=== PATIENT | female | born 1950 | race Caucasian/White ===

== ENCOUNTER 2018-03-11 10:20 | Emergency (ER) | payer MEDICARE, SELFPAY ==
[2018-03-11 10:25] VITALS: BP 141/76; PULSE 91; RESP 20; TEMP 36.6
--- NOTE | 2018-03-11 10:29 | DI.RAD.S_ITS ---
PROCEDURE: XR FOOT LT MIN 3V INDICATIONS: injury, pain TECHNIQUE: 3 views of the foot were acquired. COMPARISON: [facility], CR, XR ANKLE LT MIN 3V, 03/11/2018, 10:30. FINDINGS: Bones: No fractures or dislocations. No suspicious bony lesions. There is a bipartite medial sesamoid. Soft tissues: No tibiotalar joint effusion. Achilles tendon appears normal. IMPRESSION: No fracture or dislocation. If clinical symptoms persist or clinical suspicion for pathology is high, a repeat examination in 7-10 days, or advanced imaging such as CT or MRI is suggested for further evaluation. Dictated by: Harjit Fraga M.D. on 03/11/2018 at 11:10 Approved by: Harjit Fraga M.D. on 03/11/2018 at 11:11
--- NOTE | 2018-03-11 10:49 | DI.RAD.S_ITS ---
PROCEDURE: XR ANKLE LT MIN 3V INDICATIONS: s/p inversion injury TECHNIQUE: 3 views of the ankle were acquired. COMPARISON: None. FINDINGS: Bones: A small avulsion fracture is noted in the lateral aspect of the talus. Ankle mortise is normally aligned. No suspicious bony lesions. Soft tissues: Small tibiotalar joint effusion. Achilles tendon appears normal. Soft tissue swelling over the lateral malleolus. IMPRESSION: Avulsion fracture of the lateral aspect of the talus. Dictated by: Harjit Fraga M.D. on 03/11/2018 at 11:35 Approved by: Harjit Fraga M.D. on 03/11/2018 at 11:37
--- NOTE | 2018-03-11 11:56 | ED.LOWEXIN ---
HPI - Extremity Injury (Lower) General Chief Complaint: Extremity Injury, Lower Stated Complaint: LEFT ANKLE PAIN History of Present Illness HPI Narrative: HPI 67-year-old female presents for evaluation of left ankle/foot pain that occurred when she introverted her ankle while walking this morning, patient felt sudden pain and has had ongoing difficulty walking since her injury. Denies further injuries. ROS with no recent constitutional symptoms. Exam Gen: Pleasant, nontoxic-appearing, resting comfortably. HEENT: NC, AT, PEERL, EOMI. Resp: Unlabored respirations with a normal work of breathing. Card: Extremities warm and well perfused. GI: Non-distended. : Deferred MSK: left calf without visible or palpable trauma, muscle compartments soft and non-tender to palpation. Mann test with plantar flexion. No tenderness to palpation over the tibia or fibula. Ankle with ecchymosis inferior to the lateral malleolus. No tenderness over the posterior lateral malleolus, no tenderness over the posterior medial malleolus. Able to fully dorsiflex, plantarflex, obey, and invert the ankle with globally reduced range of motion . Foot visually normal with the exception of swelling inferior and distal to the lateral malleolus with surrounding tenderness, no further abnormalities, there is equivocal navicular bone tenderness palpation, no tenderness at the base of the 5th metatarsal. Able flex and extend all toes. Muscle compartments of the foot are soft. Neurovascular 2+ DP and PT pulses. Sensation grossly intact to touch on the calf. Sensation intact to touch on all toes, first web space, the medial, lateral, plantar and dorsal surfaces of the foot. Neuro: AO x 3, no facial asymmetry, vision and hearing WNL. Heme/Lymph: Deferred Skin: Normal color with no visible lesions (other than noted above). Psych: Mood and affect appropriate. XR L Ankle: avulsion fracture of the lateral aspect of the talus. XR L Foot: no fracture or dislocation. MDM Previous chart, nursing note, and vitals reviewed. A: 67-year-old female presents for evaluation of left ankle/foot pain that occurred when she introverted her ankle while walking this morning, patient felt sudden pain and has had ongoing difficulty walking since her injury. DDx & Evaluation: imaging with a lateral tower avulsion fracture. Posterior slab and stirrup splint placed, patient provided with crutches. Patient to follow up with orthopedics. [facility] intact. Impression: left talar avulsion fracture. (please reference below for remainder of encounter information) Patient was notified of their elevated blood pressure and recommended to follow up with their primary care physician. As the patient is without evidence of acute end organ dysfunction no further emergent evaluation is indicated as per the 2013 [facility] clinical policy. Related Data Home Medications Medication Instructions Recorded Confirmed ASPIRIN (Aspirin EC) 81 mg PO QDAY #0 05/29/12 Previous Rx's Medication Instructions Recorded albuterol sulfate [Proventil HFA] 1 - 2 puff INH Q3HP PRN #8.5 gm 08/05/16 zoster vaccine live (PF) [Zostavax 0.5 ml SQ ONCE #0.5 ml 08/05/16 (PF)] lisinopril 20 mg PO QDAY #90 tab 12/07/17 citalopram [Celexa] 20 mg PO QDAY #30 tab 02/10/18 alprazolam 0.5 mg tablet 0.25 mg PO SEE INSTRUCTIONS PRN 02/15/18 #30 tab clobetasol-emollient 0.05 % 1 applictn TOPICAL BID #60 gram 02/27/18 topical cream betamethasone valerate 0.1 % 1 applictn TOP BID PRN #45 gram 03/07/18 topical cream Allergies Allergy/AdvReac Type Severity Reaction Status Date / Time Iodinated Contrast- Oral and Allergy Severe Facial/lip Verified 02/23/18 09:35 IV Dye swelling [IODINATED CONTRAST MEDIA - IV DYE] PFSH Medical History Anxiety (Chronic) Asthma (Chronic) Chronic back pain (Chronic) Depression (Chronic) Endometriosis (Chronic 1972) Shoulder pain (Chronic) Chicken pox (Resolved) Colon polyps (Resolved 2011) Mumps (Resolved) Skin cancer (Resolved 2011) Surgical History Anesthesia (Resolved) History of bladder suspension procedure (Resolved) S/P total abdominal hysterectomy and bilateral salpingo-oophorectomy (Resolved) Status post appendectomy (Resolved) Status post sclerotherapy of varicose veins (Resolved) Status post tonsillectomy and adenoidectomy (Resolved) Family History Brother Age: 70 Heart disease Asthma Father Heart disease Hypertension Diabetes mellitus Mother Age: 88 Heart disease Stroke Social History marital status: pets and animals: Yes education level: high school occupational status: employed seatbelt use: always water heater temp set < 120 deg: Yes working smoke detector in home: Yes fire extinguisher in home: No carbon monox detector in home: Yes firearms in home: No Smoking Status: Former smoker alcohol intake: current during the past year weight has: increased > 10 lbs well-balanced diet: about half the time daily servings fruits/ve-1 caffeine: Yes eating out: 1-3 times/week Exam Initial Vital Signs Initial Vital Signs: Vital Signs Temperature 97.9 F 03/11/18 10:25 Pulse Rate 91 H 03/11/18 10:25 Respiratory Rate 20 03/11/18 10:25 Blood Pressure 141/76 H 03/11/18 10:25 Course Orders Ordered: ED Orders 03/11/18 10:29 XR foot LT min 3V Stat 03/11/18 10:49 XR ankle LT min 3V Stat Vital Signs - 8 hr 03/11/18 10:25 Temperature 97.9 F Pulse Rate 91 H Respiratory Rate 20 Blood Pressure 141/76 H Discharge Plan Departure Prescriptions: No Action ASPIRIN (Aspirin EC) 81 mg PO QDAY Qty: 0 RF: 0 albuterol sulfate [Proventil HFA] 90 MCG/PUFF HFA aerosol inhaler 1 - 2 puff INH Q3HP PRNQty: 8.5 RF: 3 zoster vaccine live (PF) [Zostavax (PF)] 19,400 UNIT/0.65 ML suspension for reconstitution 0.5 ml SQ ONCE Qty: 0.5 RF: 0 lisinopril 20 mg tablet 20 mg PO QDAY Qty: 90 RF: 3 citalopram [Celexa] 20 mg tablet 20 mg PO QDAY Qty: 30 RF: 0 alprazolam [Xanax] 0.5 mg tablet 0.25 mg PO SEE INSTRUCTIONS PRN (Reason: anxiety) Qty: 30 RF: 0 clobetasol-emollient 0.05 % cream 1 applictn Topical BID Qty: 60 RF: 0 betamethasone valerate 0.1 % cream 1 applictn TOP BID PRN (Reason: rash) Qty: 45 RF: 1
[2018-03-11 12:52] VITALS: BP 126/75; PULSE 68; RESP 14; O2SAT 98
== END 2018-03-11 13:13 | disposition home or self-care (01) ==
PROVIDERS: Emergency Provider Emergency Medicine; PCP Family Medicine
DX: S92.152A Displaced avulsion fracture (chip fracture) of left talus, initial encounter for closed fracture (principal); X58.XXXA Exposure to other specified factors, initial encounter
CPT/HCPCS: 29515; 73610; 73630; 99282; 99284

== ENCOUNTER 2018-08-09 13:15 | Emergency (ER) | payer MEDICARE, MEDICAID, SELFPAY ==
[2018-08-09 13:22] VITALS: BP 165/101; PULSE 89; RESP 16; TEMP 36.2; O2SAT 99; BMI 21.6
--- NOTE | 2018-08-09 13:24 | DI.RAD.S_ITS ---
PROCEDURE: XR ELBOW LT MIN 3V INDICATIONS: left elbow injury TECHNIQUE: 4 views of the elbow were acquired. COMPARISON: None. FINDINGS: Bones: No definite fractures or dislocations but there is a suspected nondisplaced fracture involving the radial head. No suspicious bony lesions. Soft tissues: There is a moderate sized elbow joint effusion. No suspicious soft tissue calcifications. IMPRESSION: The moderate sized elbow joint effusion is definitely present, and therefore a hidden fracture is suspected. Several of the images show a questionable fracture non-displaced across the articular surface of the radial head. MR scanning can be utilized for definitive diagnosis if clinically indicated. Dictated by: Carlos Alberto Last M.D. on 08/09/2018 at 13:54 Approved by: Carlos Alberto Last M.D. on 08/09/2018 at 13:56
[2018-08-09] MEDS: TET,DIPH,PERTUSS(ACELL),VAC/PF 0.5 ML SYRINGE IM (13:59)
--- NOTE | 2018-08-09 14:03 | ED.UPPEXIN ---
HPI - Extremity Injury (Upper) <HIRAM Carranza - Last Filed: 08/09/18 19:12> General Chief Complaint: Extremity Injury, Upper Stated Complaint: fell, hurt left arm/hands Time Seen by Provider: 08/09/18 13:37 Source: patient Mode of arrival: ambulatory Limitations: no limitations History of Present Illness HPI narrative: 68-year-old female's active smoker a ground onto her left elbow. She complains pain on her left elbow with associated decreased range of motion. Patient states that she tripped over her own feet and thinks she landed on her left elbow and did not hit her head or her neck. She denies numbness or tingling of her arm. she does not take any blood thinners other than aspirin. She denies any syncope or lightheadedness and insists that this was a mechanical fall. She thinks she either landed on her left elbow bent or on an outstretched arm. she does state that she bit down so hard that she popped her dental crown out. Related Data Home Medications Medication Instructions Recorded Confirmed ASPIRIN (Aspirin EC) 81 mg PO QDAY #0 05/29/12 06/27/18 alprazolam 0.25 mg PO BID PRN 08/09/18 08/09/18 citalopram [Celexa] 20 mg PO DAILY 08/09/18 08/09/18 lisinopril 20 mg PO DAILY 08/09/18 08/09/18 Previous Rx's Medication Instructions Recorded albuterol sulfate [Proventil HFA] 1 - 2 puff INH Q3HP PRN #8.5 gm 08/05/16 clobetasol-emollient 0.05 % 1 applictn TOPICAL BID #60 gram 02/27/18 topical cream betamethasone valerate 0.1 % 1 applictn TOP BID PRN #45 gram 03/07/18 topical cream oxycodone-acetaminophen 1 tab PO Q4-6H PRN #15 tab 08/09/18 Allergies Allergy/AdvReac Type Severity Reaction Status Date / Time Iodinated Contrast- Oral and Allergy Severe Facial/lip Verified 08/09/18 13:22 IV Dye swelling [IODINATED CONTRAST MEDIA - IV DYE] Review of Systems <HIRAM Carranza - Last Filed: 08/09/18 19:12> Review of Systems GENERAL: Denies chills, fatigue, malaise, fever, sweats. HEENT: see HPI RESPIRATORY: Denies dyspnea, cough, wheezing, hemoptysis, sputum. CARDIOVASCULAR: Denies chest pain, palpitations, orthopnea, edema, GASTROINTESTINAL: Denies nausea, vomiting, abdominal pain, diarrhea, constipation, melena. : Denies dysuria, frequency, incontinence, hematuria, urinary retention. MUSCULOSKELETAL: see HPI SKIN: seeHPI NEUROLOGIC: Denies weakness, headache, numbness, change in speech, confusion, seizures, incoordination. PSYCHIATRIC: No concerning psychosocial issues. 12 point review of systems is negative except for those stated above Exam <Edie Constantino, [employer] - Last Filed: 08/09/18 19:12> Narrative Exam Narrative: GENERAL: This is a well-nourished, well-developed patient, Lying on stretcher. HEAD: Atraumatic. Normocephalic. No temporal or scalp tenderness. EYES: Pupils equal round and reactive. Extraocular motions intact. No scleral icterus. No injection or drainage. ENT: Nose without bleeding, purulent drainage or septal hematoma. Throat without erythema, tonsillar hypertrophy or exudate. Uvula midline. Airway patent. NECK: Trachea midline. No JVD or lymphadenopathy. Supple, nontender, no meningeal signs. CARDIOVASCULAR: Regular rate and rhythm without murmurs, gallops, or rubs. RESPIRATORY: Clear to auscultation. Breath sounds equal bilaterally. No wheezes, rales, or rhonchi. no cough or increased respiratory effort. GASTROINTESTINAL: Abdomen soft, non-tender, nondistended. No hepato-splenomegaly, or palpable masses. No guarding. EXTREMITIES: Pain to palpation diffuse left elbow. Positive radial pulse left hand. Strength is equal bilateral hands. Decreased extension left elbow noted to approximately 120?. Patient is able to flex left arm to 80?. Pain on pronation and supination left arm. Patient has full range of motion right and left hands as well as elbows. No pain on palpation of left shoulder. BACK: Nontender without deformity or crepitance. No flank tenderness. NEURO: AOx3. SKIN: Abrasion noted 1 cm left palm. No ecchymosis abrasion laceration or contusion noted left elbow. Initial Vital Signs Initial Vital Signs: Vital Signs Temperature 97.2 F L 08/09/18 13:22 Pulse Rate 89 08/09/18 13:22 Respiratory Rate 16 08/09/18 13:22 Blood Pressure 165/101 H 08/09/18 13:22 Pulse Oximetry 99 08/09/18 13:22 <Ricci Hdz DO - Last Filed: 08/09/18 19:27> Initial Vital Signs Initial Vital Signs: Vital Signs Temperature 97.2 F L 08/09/18 13:22 Pulse Rate 89 08/09/18 13:22 Respiratory Rate 16 08/09/18 13:22 Blood Pressure 165/101 H 08/09/18 13:22 Pulse Oximetry 99 08/09/18 13:22 Procedures <HIRAM Carranza - Last Filed: 08/09/18 19:12> Orthopedic Splinting/Casting Injury #1: Side: left Upper Extremity Injury Location: elbow Upper Extremity Immobilizer: sling/shoulder immobilizer and posterior splint Additional Comments: PMS intact before and after splint application Course <HIRAM Carranza - Last Filed: 08/09/18 19:12> Orders Ordered: ED Orders 08/09/18 13:24 XR elbow LT min 3V Stat Discontinued Medications Diphtheria/Tetanus/Acell Pertussis (Adacel) 0.5 ml IM .ONCE ONE Stop: 08/09/18 13:58 Last Admin: 08/09/18 13:59 Dose: 0.5 ml Ondansetron HCl (Zofran Odt) 4 mg PO NOW ONE Stop: 08/09/18 14:18 Last Admin: 08/09/18 14:30 Dose: 4 mg Oxycodone/Acetaminophen (Percocet 5/325) 2 tab PO NOW ONE Stop: 08/09/18 14:18 Last Admin: 08/09/18 14:29 Dose: 2 tab Vital Signs - 8 hr 08/09/18 13:22 08/09/18 15:26 Temperature 97.2 F L 98.3 F Pulse Rate 89 75 Respiratory Rate 16 16 Blood Pressure 165/101 H Blood Pressure [Right Arm] 175/91 H Pulse Oximetry 99 97 <DO Gerardo Greer Last Filed: 08/09/18 19:27> Orders Ordered: ED Orders 08/09/18 13:24 XR elbow LT min 3V Stat Discontinued Medications Diphtheria/Tetanus/Acell Pertussis (Adacel) 0.5 ml IM .ONCE ONE Stop: 08/09/18 13:58 Last Admin: 08/09/18 13:59 Dose: 0.5 ml Ondansetron HCl (Zofran Odt) 4 mg PO NOW ONE Stop: 08/09/18 14:18 Last Admin: 08/09/18 14:30 Dose: 4 mg Oxycodone/Acetaminophen (Percocet 5/325) 2 tab PO NOW ONE Stop: 08/09/18 14:18 Last Admin: 08/09/18 14:29 Dose: 2 tab Vital Signs - 8 hr 08/09/18 13:22 08/09/18 15:26 Temperature 97.2 F L 98.3 F Pulse Rate 89 75 Respiratory Rate 16 16 Blood Pressure 165/101 H Blood Pressure [Right Arm] 175/91 H Pulse Oximetry 99 97 MDM - Extremity Injury (Upper) <BRANDEN Carranza-HARINDER - Last Filed: 08/09/18 19:12> Imaging Data elbow xray: Radiologist's impression: [place] [address] XRay Report Signed Patient: Lyndsey Canales MR#: [id number] : 1950 Acct:[id number] Age/Sex: 68 / F Date of Service: 08/09/18 Loc: ED Accession Number: [id number] Procedure: XR elbow LT min 3V Ordering Provider: Ricci Hdz D.O. PROCEDURE: XR ELBOW LT MIN 3V INDICATIONS: left elbow injury TECHNIQUE: 4 views of the elbow were acquired. COMPARISON: None. FINDINGS: Bones: No definite fractures or dislocations but there is a suspected nondisplaced fracture involving the radial head. No suspicious bony lesions. Soft tissues: There is a moderate sized elbow joint effusion. No suspicious soft tissue calcifications. IMPRESSION: The moderate sized elbow joint effusion is definitely present, and therefore a hidden fracture is suspected. Several of the images show a questionable fracture non-displaced across the articular surface of the radial head. MR scanning can be utilized for definitive diagnosis if clinically indicated. Dictated by: Carlos Alberto Last M.D. on 08/09/2018 at 13:54 Approved by: Carlos Alberto Last M.D. on 08/09/2018 at 13:56 MDM Narrative Medical decision making narrative: Patient is a 68-year-old female presents after ground level fall an x-ray was concerning for a hidden fracture given a nondisplaced radial head fracture, she was placed in a posterior splint as well as a sling. She was treated for pain with Percocet in the emergency department. She was neurovascularly intact, but given her inability to extend her arm fully as well as concern for fracture, she is placed in a posterior splint. Pulse motor and sensory were intact before and after splint application. I discussed at length rest ice compression elevation. Patient otherwise denied neck or back pain and had a benign exam other than her abrasions. Her tetanus was updated in the emergency department. She denied any further imaging at this point time. Patient questions or concerns and expressed understanding upon discharge. Discharge Plan Departure Patient Disposition: Home Clinical Impression: Closed fracture of head of left radius, Effusion of elbow joint, left, Elbow pain, left Discharge Date/Time: 08/09/18 16:15 Interventions: ED Discharge Assessment Last Done: 08/09/18 16:15 Instructions: How to Use a Sling, DI for Elbow Fracture, How To Perform RICE (Rest, Ice, Compress, Elevate), How to Take Care of Your Splint, DI for Elbow Pain Activity Restrictions/Additional Instructions: Your x-ray today is concerning for a radial head fracture. You also have an effusion in her left elbow. Thus we have placed her in a splint I would like you to follow up with [facility]. I have given you the contact information. Please use rest ice compression elevation. I have given you a prescription for pain medication. Please do not combine more Tylenol with this medication. Please follow-up with primary care provider as well. Prescriptions: New oxycodone-acetaminophen 5-325 mg tablet 1 tab PO Q4-6H PRN (Reason: pain) Qty: 15 RF: 0 No Action ASPIRIN (Aspirin EC) 81 mg PO QDAY Qty: 0 RF: 0 albuterol sulfate [Proventil HFA] 90 MCG/PUFF HFA aerosol inhaler 1 - 2 puff INH Q3HP PRNQty: 8.5 RF: 3 clobetasol-emollient 0.05 % cream 1 applictn Topical BID Qty: 60 RF: 0 betamethasone valerate 0.1 % cream 1 applictn TOP BID PRN (Reason: rash) Qty: 45 RF: 1 alprazolam 0.5 mg tablet 0.25 mg PO BID PRN (Reason: Anxiety) RF: 0 lisinopril 20 mg tablet 20 mg PO DAILY RF: 0 citalopram [Celexa] 20 mg tablet 20 mg PO DAILY RF: 0 Referrals: [facility] [Outside] Fred Lund MD [Primary Care Provider] - <Ricci Hdz DO - Last Filed: 08/09/18 19:27> Cosign ED Attending Cosnealature Attestation: I was available for consultation during this patient's emergency department encounter
--- NOTE | 2018-08-09 14:06 | ED_ITS ---
HPI - Extremity Injury (Upper) <HIRAM Carranza - Last Filed: 08/09/18 19:12> General Chief Complaint: Extremity Injury, Upper Stated Complaint: fell, hurt left arm/hands Time Seen by Provider: 08/09/18 13:37 Source: patient Mode of arrival: ambulatory Limitations: no limitations History of Present Illness HPI narrative: 68-year-old female's active smoker a ground onto her left elbow. She complains pain on her left elbow with associated decreased range of motion. Patient states that she tripped over her own feet and thinks she landed on her left elbow and did not hit her head or her neck. She denies numbness or tingling of her arm. she does not take any blood thinners other than aspirin. She denies any syncope or lightheadedness and insists that this was a mechanical fall. She thinks she either landed on her left elbow bent or on an outstretched arm. she does state that she bit down so hard that she popped her dental crown out. Related Data Home Medications Medication Instructions Recorded Confirmed ASPIRIN (Aspirin EC) 81 mg PO QDAY #0 05/29/12 06/27/18 alprazolam 0.25 mg PO BID PRN 08/09/18 08/09/18 citalopram [Celexa] 20 mg PO DAILY 08/09/18 08/09/18 lisinopril 20 mg PO DAILY 08/09/18 08/09/18 Previous Rx's Medication Instructions Recorded albuterol sulfate [Proventil HFA] 1 - 2 puff INH Q3HP PRN #8.5 gm 08/05/16 clobetasol-emollient 0.05 % 1 applictn TOPICAL BID #60 gram 02/27/18 topical cream betamethasone valerate 0.1 % 1 applictn TOP BID PRN #45 gram 03/07/18 topical cream oxycodone-acetaminophen 1 tab PO Q4-6H PRN #15 tab 08/09/18 Allergies Allergy/AdvReac Type Severity Reaction Status Date / Time Iodinated Contrast- Oral and Allergy Severe Facial/lip Verified 08/09/18 13:22 IV Dye swelling [IODINATED CONTRAST MEDIA - IV DYE] Review of Systems <HIRAM Carranza - Last Filed: 08/09/18 19:12> Review of Systems GENERAL: Denies chills, fatigue, malaise, fever, sweats. HEENT: see HPI RESPIRATORY: Denies dyspnea, cough, wheezing, hemoptysis, sputum. CARDIOVASCULAR: Denies chest pain, palpitations, orthopnea, edema, GASTROINTESTINAL: Denies nausea, vomiting, abdominal pain, diarrhea, constipation, melena. : Denies dysuria, frequency, incontinence, hematuria, urinary retention. MUSCULOSKELETAL: see HPI SKIN: seeHPI NEUROLOGIC: Denies weakness, headache, numbness, change in speech, confusion, seizures, incoordination. PSYCHIATRIC: No concerning psychosocial issues. 12 point review of systems is negative except for those stated above Exam <Edie Constantino, CONCRETE MASON-BC - Last Filed: 08/09/18 19:12> Narrative Exam Narrative: GENERAL: This is a well-nourished, well-developed patient, Lying on stretcher. HEAD: Atraumatic. Normocephalic. No temporal or scalp tenderness. EYES: Pupils equal round and reactive. Extraocular motions intact. No scleral icterus. No injection or drainage. ENT: Nose without bleeding, purulent drainage or septal hematoma. Throat without erythema, tonsillar hypertrophy or exudate. Uvula midline. Airway patent. NECK: Trachea midline. No JVD or lymphadenopathy. Supple, nontender, no meningeal signs. CARDIOVASCULAR: Regular rate and rhythm without murmurs, gallops, or rubs. RESPIRATORY: Clear to auscultation. Breath sounds equal bilaterally. No wheezes , rales, or rhonchi. no cough or increased respiratory effort. GASTROINTESTINAL: Abdomen soft, non-tender, nondistended. No hepato-splenomegaly , or palpable masses. No guarding. EXTREMITIES: Pain to palpation diffuse left elbow. Positive radial pulse left hand. Strength is equal bilateral hands. Decreased extension left elbow noted to approximately 120?. Patient is able to flex left arm to 80?. Pain on pronation and supination left arm. Patient has full range of motion right and left hands as well as elbows. No pain on palpation of left shoulder. BACK: Nontender without deformity or crepitance. No flank tenderness. NEURO: AOx3. SKIN: Abrasion noted 1 cm left palm. No ecchymosis abrasion laceration or contusion noted left elbow. Initial Vital Signs Initial Vital Signs: Vital Signs Temperature 97.2 F L 08/09/18 13:22 Pulse Rate 89 08/09/18 13:22 Respiratory Rate 16 08/09/18 13:22 Blood Pressure 165/101 H 08/09/18 13:22 Pulse Oximetry 99 08/09/18 13:22 <Ricci Hdz DO - Last Filed: 08/09/18 19:27> Initial Vital Signs Initial Vital Signs: Vital Signs Temperature 97.2 F L 08/09/18 13:22 Pulse Rate 89 08/09/18 13:22 Respiratory Rate 16 08/09/18 13:22 Blood Pressure 165/101 H 08/09/18 13:22 Pulse Oximetry 99 08/09/18 13:22 Procedures <HIRAM Carranza - Last Filed: 08/09/18 19:12> Orthopedic Splinting/Casting Injury #1: Side: left Upper Extremity Injury Location: elbow Upper Extremity Immobilizer: sling/shoulder immobilizer and posterior splint Additional Comments: PMS intact before and after splint application Course <HIRAM Carranza - Last Filed: 08/09/18 19:12> Orders Ordered: ED Orders 08/09/18 13:24 XR elbow LT min 3V Stat Discontinued Medications Diphtheria/Tetanus/Acell Pertussis (Adacel) 0.5 ml IM .ONCE ONE Stop: 08/09/18 13:58 Last Admin: 08/09/18 13:59 Dose: 0.5 ml Ondansetron HCl (Zofran Odt) 4 mg PO NOW ONE Stop: 08/09/18 14:18 Last Admin: 08/09/18 14:30 Dose: 4 mg Oxycodone/Acetaminophen (Percocet 5/325) 2 tab PO NOW ONE Stop: 08/09/18 14:18 Last Admin: 08/09/18 14:29 Dose: 2 tab Vital Signs - 8 hr 08/09/18 13:22 08/09/18 15:26 Temperature 97.2 F L 98.3 F Pulse Rate 89 75 Respiratory Rate 16 16 Blood Pressure 165/101 H Blood Pressure [Right Arm] 175/91 H Pulse Oximetry 99 97 <DO Gerardo Greer Last Filed: 08/09/18 19:27> Orders Ordered: ED Orders 08/09/18 13:24 XR elbow LT min 3V Stat Discontinued Medications Diphtheria/Tetanus/Acell Pertussis (Adacel) 0.5 ml IM .ONCE ONE Stop: 08/09/18 13:58 Last Admin: 08/09/18 13:59 Dose: 0.5 ml Ondansetron HCl (Zofran Odt) 4 mg PO NOW ONE Stop: 08/09/18 14:18 Last Admin: 08/09/18 14:30 Dose: 4 mg Oxycodone/Acetaminophen (Percocet 5/325) 2 tab PO NOW ONE Stop: 08/09/18 14:18 Last Admin: 08/09/18 14:29 Dose: 2 tab Vital Signs - 8 hr 08/09/18 13:22 08/09/18 15:26 Temperature 97.2 F L 98.3 F Pulse Rate 89 75 Respiratory Rate 16 16 Blood Pressure 165/101 H Blood Pressure [Right Arm] 175/91 H Pulse Oximetry 99 97 MDM - Extremity Injury (Upper) <BRANDEN Carranza-HARINDER - Last Filed: 08/09/18 19:12> Imaging Data elbow xray: Radiologist's impression: [place] [address] XRay Report Signed Patient: Lyndsey Canales MR#: [id number] : 1950 Acct:[id number] Age/Sex: 68 / F Date of Service: 08/09/18 Loc: ED Accession Number: [id number] Procedure: XR elbow LT min 3V Ordering Provider: Ricci Hdz D.O. PROCEDURE: XR ELBOW LT MIN 3V INDICATIONS: left elbow injury TECHNIQUE: 4 views of the elbow were acquired. COMPARISON: None. FINDINGS: Bones: No definite fractures or dislocations but there is a suspected nondisplaced fracture involving the radial head. No suspicious bony lesions. Soft tissues: There is a moderate sized elbow joint effusion. No suspicious soft tissue calcifications. IMPRESSION: The moderate sized elbow joint effusion is definitely present, and therefore a hidden fracture is suspected. Several of the images show a questionable fracture non-displaced across the articular surface of the radial head. MR scanning can be utilized for definitive diagnosis if clinically indicated. Dictated by: Carlos Alberto Last M.D. on 08/09/2018 at 13:54 Approved by: Carlos Alberto Last M.D. on 08/09/2018 at 13:56 MDM Narrative Medical decision making narrative: Patient is a 68-year-old female presents after ground level fall an x-ray was concerning for a hidden fracture given a nondisplaced radial head fracture, she was placed in a posterior splint as well as a sling. She was treated for pain with Percocet in the emergency department. She was neurovascularly intact, but given her inability to extend her arm fully as well as concern for fracture, she is placed in a posterior splint. Pulse motor and sensory were intact before and after splint application. I discussed at length rest ice compression elevation. Patient otherwise denied neck or back pain and had a benign exam other than her abrasions. Her tetanus was updated in the emergency department. She denied any further imaging at this point time. Patient questions or concerns and expressed understanding upon discharge. Discharge Plan Departure Patient Disposition: Home Clinical Impression: Closed fracture of head of left radius, Effusion of elbow joint, left, Elbow pain, left Discharge Date/Time: 08/09/18 16:15 Interventions: ED Discharge Assessment Last Done: 08/09/18 16:15 Instructions: How to Use a Sling, DI for Elbow Fracture, How To Perform RICE ( Rest, Ice, Compress, Elevate), How to Take Care of Your Splint, DI for Elbow Pain Activity Restrictions/Additional Instructions: Your x-ray today is concerning for a radial head fracture. You also have an effusion in her left elbow. Thus we have placed her in a splint I would like you to follow up with [facility]. I have given you the contact information. Please use rest ice compression elevation. I have given you a prescription for pain medication. Please do not combine more Tylenol with this medication. Please follow-up with primary care provider as well. Prescriptions: New oxycodone-acetaminophen 5-325 mg tablet 1 tab PO Q4-6H PRN (Reason: pain) Qty: 15 RF: 0 No Action ASPIRIN (Aspirin EC) 81 mg PO QDAY Qty: 0 RF: 0 albuterol sulfate [Proventil HFA] 90 MCG/PUFF HFA aerosol inhaler 1 - 2 puff INH Q3HP PRNQty: 8.5 RF: 3 clobetasol-emollient 0.05 % cream 1 applictn Topical BID Qty: 60 RF: 0 betamethasone valerate 0.1 % cream 1 applictn TOP BID PRN (Reason: rash) Qty: 45 RF: 1 alprazolam 0.5 mg tablet 0.25 mg PO BID PRN (Reason: Anxiety) RF: 0 lisinopril 20 mg tablet 20 mg PO DAILY RF: 0 citalopram [Celexa] 20 mg tablet 20 mg PO DAILY RF: 0 Referrals: [facility] [Outside] Fred Lund MD [Primary Care Provider] - <Ricci Hdz DO - Last Filed: 08/09/18 19:27> Cosign ED Attending Cosnealature Attestation: I was available for consultation during this patient's emergency department encounter
[2018-08-09] MEDS: OXYCODONE/ACETAMINOPHEN 5/325 TABLET 2 TAB PO (14:29)
[2018-08-09] MEDS: ONDANSETRON 4 MG ODT PO (14:30)
[2018-08-09 15:26] VITALS: BP 175/91; PULSE 75; RESP 16; TEMP 36.8; O2SAT 97
== END 2018-08-09 16:15 | disposition home or self-care (01) ==
PROVIDERS: Emergency Provider Nurse Practitioner Family; PCP Family Medicine
DX: S52.92XA Unspecified fracture of left forearm, initial encounter for closed fracture (principal); W19.XXXA Unspecified fall, initial encounter
CPT/HCPCS: 73080; 90471; 99283; 90715

== ENCOUNTER 2018-12-05 06:50 | Day surgery (SDC) | payer MEDICARE, MEDICAID, SELFPAY ==
[2018-12-05] MEDS: PROPARACAINE 0.5% OPHTH SOL 2 DROPS EYE-OP (07:15)
[2018-12-05] MEDS: CATARACT EYE COMPOUND (10 DROPS/SYRINGE) 3 DROPS EYE-OP (07:20)
[2018-12-05 07:28] VITALS: BP 146/83; PULSE 81; RESP 15; TEMP 36.3; O2SAT 94
[2018-12-05 07:29] VITALS: BMI 20.9
--- NOTE | 2018-12-05 08:42 | PM.PREOP ---
Pre-operative Note Interval Note History & Physical reviewed/Exam performed by Physician: No Changes to H&P: No
--- NOTE | 2018-12-05 08:43 | PM.OP.1 ---
Operative Date/Time/Diagnoses Pre-op diagnosis: Nuclear Cataract Left eye Post-op diagnosis: same Procedure & Clinicians Surgeon: Ayden Daniels Anesthesia Type: MAC +/- and Sedation Operative Notes Procedure in detail: Patient brought to the operating suite. Tetracaine drops placed in the left eye. Patient was prepped and draped in sterile manner. Wire lid speculum was placed in the eye. Betadine drops were placed on the eye. This was irrigated. Lidocaine jelly was placed on the eye. A paracentesis port was created with a side-port blade. 0.1 mL 1% preservative free lidocaine was injected into the anterior chamber. The anterior chamber was deepened with viscoelastic. 2.6 mm keratome was used to create a temporal clear corneal incision. Cystotome and Utrata forceps were used to create continuous tear capsulorrhexis. Balanced salt solution was used to hydro dissect the nucleus. The phacoemulsification handpiece was inserted and the nucleus was removed using the stop and chop technique. The irrigation aspiration handpiece was inserted and the remaining cortex was removed. Anterior chamber was deepened with viscoelastic. An Fernandez ZCB00 intraocular lens with a power of 24.0 was injected into the capsular bag. Irrigation aspiration handpiece was inserted and the remaining viscoelastic was removed. Incision was hydrated with balanced salt solution and found to be leak free with pressure with Weck-Francia sponges. 0.1 mL Vigamox injected anterior chamber. 0.3 mL Kenalog 10 mg was injected subconjunctivally. Lid speculum was removed. The patient left the operating room in excellent condition. Complications: none Condition: stable Disposition: same day surgery
[2018-12-05] MEDS: CHONDROIDTIN/SOD HYALURONATE 1.05 ML SYRINGE INTRAOCULA (09:02)
[2018-12-05] MEDS: PHENYLEPHRINE/LIDOCAINE VIAL (OR) 0.2 ML EYE-OP (09:02)
[2018-12-05] MEDS: MOXIFLOXACIN OPHTH DROPS 3 ML BOTTLE 2 DROPS INJ (09:02)
[2018-12-05] MEDS: TRIAMCINOLONE 50 MG/5 ML VIAL INJ (09:02)
[2018-12-05] MEDS: BALANCED SALT IRRIG SOLN NO.2 500 ML, EPINEPHrine 1 MG IRR (09:03)
[2018-12-05] MEDS: TETRACAINE 0.5% OPHTH DROPS 4 ML 2 DROPS EYE-OP (09:03)
[2018-12-05] MEDS: LIDOCAINE JELLY 2% 5 ML 1 APPLIC TOP (09:03)
[2018-12-05 09:13] VITALS: BP 149/69; PULSE 65; RESP 15; TEMP 36.4; O2SAT 98
== END 2018-12-05 09:25 ==
LOC: OR 06:51
PROVIDERS: PCP Family Medicine; Visit Provider Ophthalmology
DX: H25.12 Age-related nuclear cataract, left eye (principal); J45.909 Unspecified asthma, uncomplicated; F17.210 Nicotine dependence, cigarettes, uncomplicated
CPT/HCPCS: J0171; J2250; J3010; J3301

== ENCOUNTER 2018-12-26 06:55 | Day surgery (SDC) | payer MEDICARE, MEDICAID, SELFPAY ==
[2018-12-26] MEDS: PROPARACAINE 0.5% OPHTH SOL 2 DROPS EYE-OP (07:42)
[2018-12-26] MEDS: CATARACT EYE COMPOUND (10 DROPS/SYRINGE) 3 DROPS EYE-OP (07:47)
[2018-12-26 07:49] VITALS: BP 134/78; PULSE 76; RESP 16; TEMP 36.3; O2SAT 91; BMI 20.9
--- NOTE | 2018-12-26 08:34 | PM.PREOP ---
Pre-operative Note Interval Note History & Physical reviewed/Exam performed by Physician: No Changes to H&P: No
--- NOTE | 2018-12-26 08:34 | PM.OP.1 ---
Operative Date/Time/Diagnoses Pre-op diagnosis: Nuclear cataract right eye Procedure & Clinicians Procedure: Cataract Surgery Same procedure as scheduled: Yes Surgeon: Ayden Daniels Anesthesia Type: MAC +/- and Sedation Operative Notes Procedure in detail: Patient brought to the operating suite. Tetracaine drops placed in the right eye. Patient was prepped and draped in sterile manner. Wire lid speculum was placed in the eye. Betadine drops were placed on the eye. This was irrigated. Lidocaine jelly was placed on the eye. A paracentesis port was created with a side-port blade. 0.1 mL 1% preservative free lidocaine was injected into the anterior chamber. The anterior chamber was deepened with viscoelastic. 2.6 mm keratome was used to create a temporal clear corneal incision. Cystotome and Utrata forceps were used to create continuous tear capsulorrhexis. Balanced salt solution was used to hydro dissect the nucleus. The phacoemulsification handpiece was inserted and the nucleus was removed using the stop and chop technique. The irrigation aspiration handpiece was inserted and the remaining cortex was removed. Anterior chamber was deepened with viscoelastic. An Fernandez ZCB00 intraocular lens with a power of 23.5 was injected into the capsular bag. Irrigation aspiration handpiece was inserted and the remaining viscoelastic was removed. Incision was hydrated with balanced salt solution and found to be leak free with pressure with Weck-Francia sponges. 0.1 mL Vigamox injected anterior chamber. 0.3 mL Kenalog 10 mg was injected subconjunctivally. Lid speculum was removed. The patient left the operating room in excellent condition. Complications: none Condition: stable Disposition: same day surgery
[2018-12-26] MEDS: TRIAMCINOLONE 50 MG/5 ML VIAL INJ (08:50)
[2018-12-26] MEDS: PHENYLEPHRINE/LIDOCAINE VIAL (OR) 0.2 ML EYE-OP (08:50)
[2018-12-26] MEDS: MOXIFLOXACIN OPHTH DROPS 3 ML BOTTLE 2 DROPS INJ (08:50)
[2018-12-26] MEDS: LIDOCAINE JELLY 2% 5 ML 1 APPLIC TOP (08:51)
[2018-12-26] MEDS: CHONDROIDTIN/SOD HYALURONATE 1.05 ML SYRINGE INTRAOCULA (08:51)
[2018-12-26] MEDS: TETRACAINE 0.5% OPHTH DROPS 4 ML 2 DROPS EYE-OP (08:51)
[2018-12-26] MEDS: BALANCED SALT IRRIG SOLN NO.2 500 ML, EPINEPHrine 1 MG IRR (08:51)
[2018-12-26 09:03] VITALS: BP 141/82; PULSE 72; RESP 16; TEMP 36.4; O2SAT 95
== END 2018-12-26 09:14 | disposition home or self-care (01) ==
PROVIDERS: PCP Family Medicine; Visit Provider Ophthalmology
PROC: (CPT 66984; principal; 2018-12-26 08:45)
DX: H25.11 Age-related nuclear cataract, right eye (principal); J45.909 Unspecified asthma, uncomplicated; F17.210 Nicotine dependence, cigarettes, uncomplicated
CPT/HCPCS: 66984; J0171; J2250; J3010; J3301

== ENCOUNTER → 2019-06-21 09:49 | Outpatient (CLI) | payer MEDICARE, MEDICAID, SELFPAY ==
[2019-06-21 11:13] LABS: Add Manual Diff / Slide Review NO; Basophils Absolute Auto 100 /uL (0-100); Basophils Percent Auto 0.8 % (0-2); Eosinophils Absolute Auto 100 /uL (0-450); Hematocrit 45.1 % (36-46); Hemoglobin 15.4 g/dL (12.0-16.0); Lymphocytes Absolute Auto 2100 /uL (1100-4500); Lymphocytes Percent Auto 32.5 % (25-40); Mean Corpuscular HGB Conc 34.1 % (30-36); Mean Corpuscular Hemoglobin 31.8 PG (26-34); Mean Corpuscular Volume 93.1 fL (80-100); Monocytes Absolute Auto 500 /uL (0-900); Monocytes Percent Auto 7.7 % (3-14); Neutrophils Absolute Auto 3700 /uL (1500-7000); Platelet Count 249 X10^3/uL (150-400); Red Blood Cell Count 4.84 X10^6/uL (4.0-5.2); Red Cell Distribution Width 12.5 % (11.6-14.8); White Blood Cell Count 6.3 X10^3/uL (4.5-11.0)
[2019-06-21 12:02] LABS: Alanine Aminotransferase 19 IU/L (<35); Albumin 4.4 g/dL (3.5-5.0); Albumin Globulin Ratio 1.2 (1.0-2.8); Alkaline Phosphatase 53 U/L (38-126); Aspartate Aminotransferase 32 IU/L (14-36); BUN Creatinine Ratio 18.6 (6-22); Bilirubin Total 0.5 mg/dL (0.2-1.3); Blood Urea Nitrogen 13 mg/dL (7-17); Calcium 9.7 mg/dL (8.4-10.2); Carbon Dioxide 29 mmol/L (22-32); Chloride 100 mmol/L (98-107); Estimated Glomerular Filt Rate > 60.0 mL/min (>60); Globulin 3.6 g/dL (1.7-4.1); Glucose 157 mg/dL (80-110); HEMOLYSIS < 15 (0-50); Potassium 5.1 mmol/L (3.4-5.1); Sodium 138 mmol/L (137-145)
[2019-06-21 12:36] LABS: TSH w/ Reflex to FT4 0.92 uIU/mL (0.47-4.68)
== END ==
PROVIDERS: PCP Family Medicine; Visit Provider Family Medicine
DX: I10 Essential (primary) hypertension (principal)
CPT/HCPCS: 36415; 80053; 84443; 85025

== ENCOUNTER → 2019-09-04 10:24 | Outpatient (CLI) | payer MEDICARE, SELFPAY ==
[2019-09-04 11:13] LABS: Appearance Urine UA CLOUDY; Bilirubin Urine UA NEGATIVE (NEGATIVE); Color Urine UA YELLOW; Glucose Urine UA NEGATIVE (Negative); Ketones Urine UA NEGATIVE (NEGATIVE); Leukocyte Esterase Urine UA 2+ (NEGATIVE); Nitrite Urine UA NEGATIVE (Negative); Occult Blood Urine UA 2+ (Negative); Protein Urine UA 1+ (Negative); Specific Gravity Urine UA 1.025 (1.000-1.035); Urobilinogen Urine UA 0.2 E.U./dL (0.2)
[2019-09-04 11:17] LABS: pH Urine UA 5.5 (4.5-8.0)
[2019-09-04 11:37] LABS: Bacteria Urine Many (>30); Culture Indicated Urine Specimen Cultured; RBC Urine 5-10/HPF (0-5/HPF); Squamous Epithelial Cell Urine 1-5 /HPF (0-5/HPF); WBC Urine >100/HPF (0-5/HPF)
== END ==
PROVIDERS: PCP Family Medicine; Visit Provider Family Medicine
DX: R30.0 Dysuria (principal)
CPT/HCPCS: 81003; 81015; 87077; 87086; 87186

== ENCOUNTER → 2020-01-22 11:14 | Outpatient (CLI) | payer MEDICARE, MEDICAID, SELFPAY | PROVIDERS: PCP Family Medicine; Visit Provider Family Medicine | DX: R30.0 Dysuria (principal) | CPT/HCPCS: 87077; 87086; 87186 ==

== ENCOUNTER → 2020-06-23 11:27 | Outpatient (CLI) | payer MEDICARE, MEDICAID, SELFPAY ==
[2020-06-23 12:21] LABS: Appearance Urine UA SL CLOUDY; Bilirubin Urine UA NEGATIVE (NEGATIVE); Color Urine UA YELLOW; Glucose Urine UA NEGATIVE (Negative); Ketones Urine UA NEGATIVE (NEGATIVE); Leukocyte Esterase Urine UA 2+ (NEGATIVE); Nitrite Urine UA NEGATIVE (Negative); Occult Blood Urine UA 1+ (Negative); Protein Urine UA NEGATIVE (Negative); Specific Gravity Urine UA 1.015 (1.000-1.035); Urobilinogen Urine UA 0.2 E.U./dL (0.2)
[2020-06-23 12:23] LABS: pH Urine UA 7.5 (4.5-8.0)
[2020-06-23 12:42] LABS: Bacteria Urine Few (2-10); Culture Indicated Urine Specimen Cultured; RBC Urine 1-5/HPF (0-5/HPF); Squamous Epithelial Cell Urine 0-1 /HPF (0-5/HPF); WBC Urine 30-100/HPF (0-5/HPF)
== END ==
PROVIDERS: PCP Family Medicine; Referring Provider Family Medicine; Visit Provider Family Medicine
DX: R30.0 Dysuria (principal)
CPT/HCPCS: 81003; 81015; 87086

== ENCOUNTER → 2020-06-26 09:33 | Outpatient (CLI) | payer MEDICARE, MEDICAID, SELFPAY | PROVIDERS: PCP Family Medicine; Referring Provider Registered Nurse; Visit Provider Registered Nurse | DX: N39.0 Urinary tract infection, site not specified (principal) | CPT/HCPCS: 87086 ==

== ENCOUNTER → 2020-06-26 09:34 | Outpatient (CLI) | payer MEDICARE, MEDICAID, SELFPAY ==
[2020-06-26 10:06] LABS: Add Manual Diff / Slide Review NO; Basophils Absolute Auto 100 /uL (0-100); Basophils Percent Auto 0.9 % (0-2); Eosinophils Absolute Auto 100 /uL (0-450); Eosinophils Percent Auto 0.5 % (2-4); Hematocrit 42.7 % (36-46); Hemoglobin 14.3 g/dL (12.0-16.0); Lymphocytes Absolute Auto 1900 /uL (1100-4500); Lymphocytes Percent Auto 15.7 % (25-40); Mean Corpuscular HGB Conc 33.4 % (30-36); Mean Corpuscular Volume 89.8 fL (80-100); Monocytes Absolute Auto 800 /uL (0-900); Monocytes Percent Auto 6.7 % (3-14); Neutrophils Absolute Auto 9200 /uL (1500-7000); Neutrophils Percent Auto 76.2 % (50-75); Platelet Count 289 X10^3/uL (150-400); Red Blood Cell Count 4.75 X10^6/uL (4.0-5.2); Red Cell Distribution Width 13.4 % (11.6-14.8); White Blood Cell Count 12.1 X10^3/uL (4.5-11.0)
[2020-06-26 10:39] LABS: Alanine Aminotransferase 15 IU/L (<35); Albumin 4.3 g/dL (3.5-5.0); Alkaline Phosphatase 67 U/L (38-126); Aspartate Aminotransferase 26 IU/L (14-36); BUN Creatinine Ratio 22.1 (6-22); Bilirubin Total 0.4 mg/dL (0.2-1.3); Blood Urea Nitrogen 15 mg/dL (7-17); Calcium 9.7 mg/dL (8.4-10.2); Carbon Dioxide 31 mmol/L (22-32); Chloride 99 mmol/L (98-107); Estimated Glomerular Filt Rate > 60.0 mL/min (>60); Globulin 4.1 g/dL (1.7-4.1); Glucose 119 mg/dL (80-110); HEMOLYSIS < 15 (0-50); Potassium 4.4 mmol/L (3.4-5.1); Sodium 136 mmol/L (137-145); Total Protein 8.4 g/dL (6.3-8.2)
== END ==
PROVIDERS: PCP Family Medicine; Referring Provider Registered Nurse; Visit Provider Registered Nurse
DX: N39.0 Urinary tract infection, site not specified (principal)
CPT/HCPCS: 36415; 80053; 85025; 87086

== ENCOUNTER → 2020-09-09 09:46 | Outpatient (CLI) | payer MEDICARE, MEDICAID, SELFPAY ==
[2020-09-09 10:57] LABS: Add Manual Diff / Slide Review NO; Basophils Absolute Auto 0 /uL (0-100); Basophils Percent Auto 0.4 % (0-2); Eosinophils Absolute Auto 100 /uL (0-450); Eosinophils Percent Auto 0.6 % (2-4); Hematocrit 39.4 % (36-46); Hemoglobin 13.2 g/dL (12.0-16.0); Lymphocytes Absolute Auto 1300 /uL (1100-4500); Lymphocytes Percent Auto 13.8 % (25-40); Mean Corpuscular HGB Conc 33.6 % (30-36); Mean Corpuscular Hemoglobin 29.7 PG (26-34); Mean Corpuscular Volume 88.5 fL (80-100); Monocytes Absolute Auto 1000 /uL (0-900); Monocytes Percent Auto 10.5 % (3-14); Neutrophils Absolute Auto 6800 /uL (1500-7000); Neutrophils Percent Auto 74.7 % (50-75); Platelet Count 240 X10^3/uL (150-400); Red Blood Cell Count 4.45 X10^6/uL (4.0-5.2); Red Cell Distribution Width 15.1 % (11.6-14.8); White Blood Cell Count 9.1 X10^3/uL (4.5-11.0)
[2020-09-09 11:01] LABS: Alanine Aminotransferase 17 IU/L (<35); Albumin 4.1 g/dL (3.5-5.0); Albumin Globulin Ratio 1.1 (1.0-2.8); Alkaline Phosphatase 55 U/L (38-126); Aspartate Aminotransferase 28 IU/L (14-36); Bilirubin Total 0.5 mg/dL (0.2-1.3); Blood Urea Nitrogen 13 mg/dL (7-17); Calcium 9.2 mg/dL (8.4-10.2); Carbon Dioxide 30 mmol/L (22-32); Chloride 99 mmol/L (98-107); Estimated Glomerular Filt Rate > 60.0 mL/min (>60); Globulin 3.8 g/dL (1.7-4.1); Glucose 131 mg/dL (80-110); HEMOLYSIS < 15 (0-50); Potassium 4.2 mmol/L (3.4-5.1); Sodium 135 mmol/L (137-145); Total Protein 7.9 g/dL (6.3-8.2)
== END ==
PROVIDERS: PCP Family Medicine; Referring Provider Nurse Practitioner Family; Visit Provider Nurse Practitioner Family
DX: N34.3 Urethral syndrome, unspecified (principal); N12 Tubulo-interstitial nephritis, not specified as acute or chronic
CPT/HCPCS: 36415; 80053; 85025; 87077; 87086; 87186

== ENCOUNTER → 2020-11-12 09:44 | Outpatient (CLI) | payer MEDICARE, MEDICAID, SELFPAY ==
[2020-11-12] MEDS: COVID-19 VACC #1, MRNA(MOD) 100 MCG/0.5 ML VIAL IM (09:53)
== END ==
PROVIDERS: PCP Family Medicine; Visit Provider Internal Medicine
DX: Z23 Encounter for immunization (principal)
CPT/HCPCS: 0011A; 91301

== ENCOUNTER → 2020-12-10 09:29 | Outpatient (CLI) | payer MEDICARE, SELFPAY ==
[2020-12-10] MEDS: COVID-19 VACC #2, MRNA(MOD) 100 MCG/0.5 ML VIAL IM (09:40)
== END ==
PROVIDERS: PCP Family Medicine; Visit Provider Internal Medicine
DX: Z23 Encounter for immunization (principal)
CPT/HCPCS: 0012A; 91301

== ENCOUNTER → 2021-11-25 08:24 | Outpatient (CLI) | payer MEDICARE, SELFPAY ==
[2021-11-26 08:05] LABS: Fecal Immunochemical Test Negative (Negative)
== END ==
PROVIDERS: Physician Assistant; PCP Family Medicine; Referring Provider Family Medicine; Visit Provider Family Medicine
DX: Z12.11 Encounter for screening for malignant neoplasm of colon (principal)
CPT/HCPCS: 82274

== ENCOUNTER → 2021-11-25 11:01 | Outpatient (CLI) | payer MEDICARE, MEDICAID, SELFPAY ==
[2021-11-25 11:53] LABS: Add Manual Diff / Slide Review NO; Basophils Absolute Auto 0 /uL (0-100); Basophils Percent Auto 0.7 % (0-2); Eosinophils Absolute Auto 0 /uL (0-450); Eosinophils Percent Auto 0.2 % (2-4); Hematocrit 43.2 % (36-46); Hemoglobin 14.8 g/dL (12.0-16.0); Lymphocytes Absolute Auto 1300 /uL (1100-4500); Mean Corpuscular HGB Conc 34.2 % (30-36); Mean Corpuscular Hemoglobin 30.9 PG (26-34); Mean Corpuscular Volume 90.4 fL (80-100); Monocytes Absolute Auto 600 /uL (0-900); Monocytes Percent Auto 9.3 % (3-14); Neutrophils Absolute Auto 4200 /uL (1500-7000); Neutrophils Percent Auto 68.8 % (50-75); Platelet Count 216 X10^3/uL (150-400); Red Blood Cell Count 4.78 X10^6/uL (4.0-5.2); Red Cell Distribution Width 13.3 % (11.6-14.8); White Blood Cell Count 6.1 X10^3/uL (4.5-11.0)
[2021-11-25 12:11] LABS: Creatinine Urine Random 227.7 mg/dL
[2021-11-25 12:13] LABS: Alanine Aminotransferase 17 IU/L (<35); Albumin 4.4 g/dL (3.5-5.0); Albumin Globulin Ratio 1.2 (1.0-2.8); Alkaline Phosphatase 54 U/L (38-126); Aspartate Aminotransferase 28 IU/L (14-36); BUN Creatinine Ratio 23.4 (6-22); Bilirubin Total 0.5 mg/dL (0.2-1.3); Blood Urea Nitrogen 15 mg/dL (7-17); Calcium 9.1 mg/dL (8.4-10.2); Carbon Dioxide 30 mmol/L (22-32); Chloride 101 mmol/L (98-107); Cholesterol 221 mg/dL (140-199); Estimated Glomerular Filt Rate > 60 mL/min (>60); Globulin 3.8 g/dL (1.7-4.1); Glucose 98 mg/dL (80-110); HDL Cholesterol 54 mg/dL (40-60); HEMOLYSIS < 15 (0-50); LDL Cholesterol Calculated 149 mg/dL (<100); Sodium 139 mmol/L (137-145); Total Protein 8.2 g/dL (6.3-8.2); Triglycerides 92 mg/dL (35-150)
[2021-11-25 12:17] LABS: Microalbumi Creatinin Ratio Ur 23.2 ug/mg CR (<30); Microalbumin Urine Random 5.3 mg/dL (0-1.6)
[2021-11-25 12:42] LABS: TSH w/ Reflex to FT4 0.76 uIU/mL (0.47-4.68)
[2021-11-25 13:01] LABS: Vitamin B12 210 pg/mL (239-931)
[2021-11-28 15:23] LABS: HCV Genotype 1a (.); HCV LOG 10 6.551 (.)
== END ==
PROVIDERS: PCP Family Medicine; Referring Provider Physician Assistant; Visit Provider Physician Assistant
DX: Z12.11 Encounter for screening for malignant neoplasm of colon (principal); I10 Essential (primary) hypertension; E78.5 Hyperlipidemia, unspecified; E55.9 Vitamin D deficiency, unspecified; E53.8 Deficiency of other specified B group vitamins; R07.9 Chest pain, unspecified; R63.4 Abnormal weight loss; F17.200 Nicotine dependence, unspecified, uncomplicated; Z20.9 Contact with and (suspected) exposure to unspecified communicable disease; Z91.89 Other specified personal risk factors, not elsewhere classified
CPT/HCPCS: 36415; 80053; 80061; 82043; 82274; 82306; 82570; 82607; 84443; 85025; 87522

== ENCOUNTER → 2021-12-02 09:49 | Outpatient (CLI) | payer MEDICARE, MEDICAID, SELFPAY ==
--- NOTE | 2021-12-02 09:52 | DI.RAD.S_ITS ---
PROCEDURE: XR CHEST 2V INDICATIONS: estrogen deficiency; smoker TECHNIQUE: 2 views of the chest were acquired. COMPARISON: [facility], , CHEST 2 VIEW, 07/01/2016, 18:55. FINDINGS: Surgical changes and devices: None. Lungs and pleura: Lungs are clear. No pleural effusions or pneumothorax. Mediastinum: Mediastinal contours are normal. Heart size is normal. Bones and chest wall: No suspicious bony abnormalities. Soft tissues appear unremarkable. IMPRESSION: No acute pulmonary process. Dictated by: Chana Leggett M.D. on 12/02/2021 at 16:22 Approved by: Chana Leggett M.D. on 12/02/2021 at 16:22
== END ==
PROVIDERS: PCP Family Medicine; Referring Provider Physician Assistant; Visit Provider Physician Assistant
DX: R07.9 Chest pain, unspecified (principal); R49.0 Dysphonia; F17.200 Nicotine dependence, unspecified, uncomplicated
CPT/HCPCS: 71046

== ENCOUNTER → 2021-12-10 09:43 | Outpatient (CLI) | payer MEDICARE, MEDICAID, SELFPAY ==
[2021-12-11 04:48] LABS: Hepatitis A Antibody Total Positive (Negative)
[2021-12-11 08:08] LABS: Hepatitis B Core Antibody Negative (Negative)
== END ==
PROVIDERS: PCP Family Medicine; Referring Provider Physician Assistant; Visit Provider Physician Assistant
DX: B19.20 Unspecified viral hepatitis C without hepatic coma (principal)
CPT/HCPCS: 36415; 86704; 86708

== ENCOUNTER → 2022-03-16 08:55 | Outpatient (CLI) | payer MEDICARE, MEDICAID, SELFPAY ==
--- NOTE | 2022-03-16 08:56 | DI.US.S_ITS ---
PROCEDURE: US ABDOMEN COMPLETE INDICATIONS: Hepatitis C TECHNIQUE: Real-time scanning was performed of the abdominal and retroperitoneal organs, with image documentation. COMPARISON: [facility], US, ABDOMEN COMPLETE, 08/10/2014, 20:52. FINDINGS: Liver: Liver is normal in size and homogeneous in echotexture. The main portal vein demonstrates normal size and demonstrates normal appearing, hepatopetal flow. Gallbladder: No findings of gallstones or sludge are seen. The gallbladder wall is not thickened, measuring 3 mm or less. No specific pericholecystic fluid is seen. The sonographic Olivera sign is negative. Biliary ducts: Intrahepatic bile ducts are non-dilated. Extrahepatic bile duct caliber measures 4 mm. Normal is 6-7 mm or less in diameter, or 10 mm or less post-cholecystectomy. Pancreas: Visualized portions of the pancreas are sonographically normal. Spleen: Spleen is normal in size and homogeneous in echotexture. Kidneys: Kidneys are normal in size and echotexture. Right kidney measures 11 cm long; left kidney measures 10.4 cm long. No hydronephrosis or nephrolithiasis. No solid masses. Aorta: Visualized aorta is normal in caliber at less than 3 cm. Distal abdominal aortic ectasia is seen, measuring 2.1 cm AP and 2.3 cm transversely. Iliacs: Proximal common iliac arteries are normal in caliber at less than 2.5 cm. IVC: Intrahepatic inferior vena cava is patent. Miscellaneous: No free abdominal fluid. IMPRESSION: Normal appearing liver. Distal abdominal aortic ectasia is seen, without aneurysm. Dictated by: López Ivey M.D. on 03/16/2022 at 9:54 Approved by: López Ivey M.D. on 03/16/2022 at 9:55
== END ==
PROVIDERS: PCP Family Medicine; Referring Provider Family Medicine; Visit Provider Family Medicine
DX: I77.811 Abdominal aortic ectasia (principal); B19.20 Unspecified viral hepatitis C without hepatic coma
CPT/HCPCS: 76700

== ENCOUNTER → 2022-04-16 08:34 | Outpatient (CLI) | payer MEDICARE, MEDICAID, SELFPAY ==
[2022-04-16 10:11] LABS: Alanine Aminotransferase 7 IU/L (<35); Albumin 3.9 g/dL (3.5-5.0); Alkaline Phosphatase 85 U/L (38-126); Aspartate Aminotransferase 16 IU/L (14-36); BUN Creatinine Ratio 23.3 (6-22); Bilirubin Total 0.4 mg/dL (0.2-1.3); Blood Urea Nitrogen 14 mg/dL (7-17); Calcium 8.9 mg/dL (8.4-10.2); Carbon Dioxide 30 mmol/L (22-32); Chloride 102 mmol/L (98-107); Estimated Glomerular Filt Rate > 60 mL/min (>60); Globulin 3.9 g/dL (1.7-4.1); Glucose 121 mg/dL (80-110); HEMOLYSIS < 15 (0-50); Potassium 4.3 mmol/L (3.4-5.1); Sodium 139 mmol/L (137-145); Total Protein 7.8 g/dL (6.3-8.2)
[2022-04-16 11:05] LABS: Hep C Virus Ab w/Reflex Quant REACTIVE s/c (NEGATIVE)
== END ==
PROVIDERS: PCP Family Medicine; Referring Provider Family Medicine; Visit Provider Family Medicine
DX: B19.20 Unspecified viral hepatitis C without hepatic coma (principal)
CPT/HCPCS: 36415; 80053; 86803; 87522

== ENCOUNTER 2022-07-01 01:42 | Emergency (ER) | payer MEDICARE, MEDICAID, SELFPAY ==
[2022-07-01] VITALS (7 sets, daily range): BP systolic 148–161; BP diastolic 94–102; PULSE 82–89; RESP 22; TEMP 36.9; O2SAT 83–93; BMI 52.4
--- NOTE | 2022-07-01 01:49 | ED_ITS ---
HPI - Back Pain/Injury General Chief Complaint: Back Pain/Injury Stated Complaint: SIATICA BACK OF HEAD DOWN TO BACK Time Seen by Provider: 07/01/22 01:45 History of Present Illness HPI Narrative: 72-year-old female smoker with history of hypertension, hyperlipidemia, hepatitis-C with prior episodes of back pain complains of worsening low back pain with radiation down both legs and now left-sided neck pain. She denies any trauma or injury. She states that her pain is worse when she moves and improves when she rests. The pain in her neck is made worse when she turns her head or moves her head either way, she denies any radiation of this pain nor any numbness, tingling or weakness. She has pain in her low back that has been there for quite some time and radiates into both hips and sometimes her legs. She denies any numbness, tingling or weakness. She denies loss of control of bowel or bladder. She denies footdrop. She is had no fever or chills and denies use of blood thinners. Related Data Home Medications Medication Instructions Recorded Confirmed ASPIRIN (Aspirin EC) 81 mg PO QDAY ##0 05/29/12 02/09/22 Previous Rx's Medication Instructions Recorded Syringe #2 ea 12/10/21 safety needles 25 gauge x 1 (BD #2 ea 12/10/21 SafetyGlide Needle) lisinopril 20 mg tablet See Rx Instructions .Route 01/15/22 .COMPLEX #90 tabs cyanocobalamin (vitamin B-12) 1,000 mcg IM QMONTH #1 mL 03/10/22 1,000 mcg/mL injection solution albuterol sulfate 90 mcg/actuation See Rx Instructions .Route 03/26/22 aerosol inhaler .COMPLEX #8.5 grams clonazepam 0.5 mg tablet 0.25 mg PO DAILY #15 tabs 04/01/22 sertraline 100 mg tablet See Rx Instructions .Route 05/21/22 .COMPLEX #90 tabs cyclobenzaprine 10 mg tablet 10 mg PO TID PRN muscle spasm #14 07/01/22 tabs gabapentin 300 mg capsule 300 mg PO BEDTIME #14 caps 07/01/22 hydrocodone 5 mg-acetaminophen 325 1 tab PO Q4-6H PRN pain #10 tabs 07/01/22 mg tablet ketorolac 10 mg tablet 10 mg PO Q6H PRN pain #14 tabs 07/01/22 methylprednisolone 4 mg tablets in See Rx Instructions PO .COMPLEX 07/01/22 a dose pack (Medrol (Karthik)) #21 ea Allergies Allergy/AdvReac Type Severity Reaction Status Date / Time Iodinated Contrast Media Allergy Severe Facial/lip Verified 02/09/22 08:41 [IODINATED CONTRAST MEDIA - swelling IV DYE] Review of Systems Review of Systems Narrative: GENERAL: Denies chills, fatigue, malaise, fever, sweats. HEENT: Denies sinus pain, ear pain, sore throat, difficulty swallowing, dizziness. RESPIRATORY: Denies dyspnea, cough, wheezing, hemoptysis, sputum. CARDIOVASCULAR: Denies chest pain, palpitations, orthopnea, edema, GASTROINTESTINAL: Denies nausea, vomiting, abdominal pain, diarrhea, constipation, melena. : Denies dysuria, frequency, incontinence, hematuria, urinary retention. MUSCULOSKELETAL: See HPI SKIN: Denies rash, skin lesions, or other NEUROLOGIC: Denies weakness, headache, numbness, change in speech, confusion, seizures, incoordination. PSYCHIATRIC: No concerning psychosocial issues. 12 point review of systems is negative except for those stated above Patient History Medical History Anxiety Asthma Chicken pox Chronic back pain Colon polyps (2011) Depression Endometriosis (1972) Homelessness Mumps Pyelonephritis Sciatica Shoulder pain Skin cancer (2011) Surgical History Anesthesia History of bladder suspension procedure S/P total abdominal hysterectomy and bilateral salpingo-oophorectomy Status post appendectomy Status post sclerotherapy of varicose veins Status post tonsillectomy and adenoidectomy Family History Brother Age: 74 Heart disease Asthma Father Heart disease Hypertension Diabetes mellitus Mother Age: 92 Heart disease Stroke Social History marital status: household members: friend(s) pets and animals: Yes education level: high school occupational status: employed seatbelt use: always water heater temp set < 120 deg: Yes working smoke detector in home: Yes fire extinguisher in home: No carbon monox detector in home: Yes firearms in home: No Smoking Status: Current every day smoker alcohol intake: current during the past year weight has: increased > 10 lbs well-balanced diet: about half the time daily servings fruits/ve-1 caffeine: Yes eating out: 1-3 times/week Smoking Status: Current every day smoker alcohol intake frequency: 0-2 drinks per day Substance Use Type: does not use Exam Narrative Exam Narrative: GENERAL: [72] year old patient appears older than stated age. Thin, chronically ill, obviously uncomfortable, rubbing the left side of her neck HEAD: Atraumatic. Normocephalic. EYES: Pupils equal round and reactive. Extraocular motions intact. No scleral icterus. No injection or drainage. ENT: Nose without bleeding, purulent drainage. Throat without erythema, tonsillar hypertrophy or exudate. Airway patent. NECK: Trachea midline. No midline tenderness, paraspinal musculature on left side tender to palpation, no additional pain with axial loading, no measurable upper extremity numbness, tingling or weakness CARDIOVASCULAR: Regular rate and rhythm without murmurs, gallops, or rubs. RESPIRATORY: Clear to auscultation. Breath sounds equal bilaterally. No wheezes, rales, or rhonchi. GASTROINTESTINAL: Abdomen soft, non-tender, nondistended. EXTREMITIES: No edema or joint tenderness. BACK: lead oxide mill tender but free of any obvious external abnormalities. Patient exam notes decreased range of motion and muscle spasm, but no CVA tenderness, or vertebral point tenderness. There are no symptoms of cauda equina such as saddle anesthesia, and decreased reflexes, decreased sensation or strength. NEURO: AOx3. SKIN: No rash or erythema of visible areas Initial Vital Signs Initial Vital Signs: Vital Signs Temperature 98.5 F 07/01/22 01:46 Pulse Rate 89 07/01/22 01:46 Respiratory Rate 22 07/01/22 01:46 Blood Pressure 148/99 H 07/01/22 01:46 Pulse Oximetry 93 07/01/22 01:46 Oxygen Delivery Method 07/01/22 01:46 Course Orders Ordered: Discontinued Medications Hydrocodone Bitart/Acetaminophen (Hydrocodone/Acet 5/325 Prepack) 1 bottle MISC SEEINSTR ONE Stop: 07/01/22 02:06 Last Admin: 07/01/22 02:20 Dose: 1 bottle Documented By: MARIANA Cyclobenzaprine HCl (Cyclobenzaprine 10 Mg Prepack) 1 bottle MISC SEEINSTR ONE Stop: 07/01/22 02:06 Last Admin: 07/01/22 02:20 Dose: 1 bottle Documented By: MARIANA Ketorolac Tromethamine (Ketorolac 30 Mg/Ml Vial) 30 mg IM NOW ONE Stop: 07/01/22 02:07 Last Admin: 07/01/22 02:21 Dose: 30 mg Documented By: MARIANA Lidocaine (Lidocaine Patch 1 Each Adh..Patch) 1 each TOP NOW ONE Stop: 07/01/22 02:06 Last Admin: 07/01/22 02:21 Dose: 1 each Documented By: MARIANA Prednisone (Prednisone 20 Mg Tablet) 40 mg PO NOW ONE Stop: 07/01/22 02:06 Last Admin: 07/01/22 02:21 Dose: 40 mg Documented By: MARIANA Vital Signs Vital signs: Vital Signs - 8 hr 07/01/22 01:46 Temperature 98.5 F Pulse Rate 89 Respiratory Rate 22 Blood Pressure 148/99 H Pulse Oximetry 93 Oxygen Delivery Method Room Air Discharge Plan Departure Patient Disposition: Home Clinical Impression: Cervical paraspinal muscle spasm, Acute lumbar radiculopathy Instructions: DI for Muscle Strain, DI for Back Pain With Sciatica Activity Restrictions/Additional Instructions: *You have been diagnosed with [cervical and lumbar paraspinal muscle spasm with radiculopathy.] *What to do: *Please continue to take your regular medications as directed. [ ] New medication prescriptions sent to your pharmacy: [ ] [ x] New medication written as a paper prescription [ ] No new medications given *Please follow up with your primary care provider in 2-3 days, call for an appointment. Let them know you were seen in the Emergency Department and that we ask that you be seen in follow up. We will electronically transmit a record of today's note if your PCP is in our system *Return to Emergency Department if you should have any new, worsening or concerning symptoms, such as [fever greater than 101 F, shaking chills, worsening pain, persistent vomiting or other bothersome symptoms] You have been prescribed a short course of narcotic medications. These are potentially dangerous and addictive medications that should be used carefully. While on these medications you cannot drive or operate heavy machinery. Additionally, you cannot sign legal documents or perform any duties such as this. Many people get constipated on narcotic medications so it would be advisable to discuss stool softeners with the pharmacist when you pick up worker your prescription. Please understand that we cannot provide further refills of narcotics or controlled substances through the ED and your pain management will need to be through your Primary Care Provider Prescriptions: New cyclobenzaprine 10 mg tablet 10 mg PO TID PRN (Reason: muscle spasm) Qty: 14 0RF hydrocodone-acetaminophen 5-325 mg tablet 1 tab PO Q4-6H PRN (Reason: pain) Qty: 10 0RF ketorolac 10 mg tablet 10 mg PO Q6H PRN (Reason: pain) Qty: 14 0RF gabapentin 300 mg capsule 300 mg PO BEDTIME Qty: 14 0RF methylprednisolone [Medrol (Karthik)] 4 mg tablets,dose pack See Rx Instructions .ROUTE .COMPLEX Qty: 21 0RF Rx Instructions: orally per package directions No Action (DME) Syringe 3ml See Rx Instructions .Route .MEDSUPPLY Qty: 2 0RF Rx Instructions: As directed for B12 injection (DME) BD SafetyGlide Needle 25 gauge x 1 needle See Rx Instructions .Route Qty: 2 0RF Rx Instructions: As directed ASPIRIN (Aspirin EC) 81 mg PO QDAY Qty: 0 lisinopril 20 mg tablet See Rx Instructions .ROUTE .COMPLEX Qty: 90 2RF Dose Instruction: take 1 tablet by mouth once daily Rx Instructions: take 1 tablet by mouth once daily cyanocobalamin (vitamin B-12) 1,000 mcg/mL solution 1,000 mcg IM QMONTH Qty: 1 1RF Rx Instructions: Administer 1 ml once monthly for 2 months staring 01/08/22 albuterol sulfate 90 mcg/actuation HFA aerosol inhaler See Rx Instructions .ROUTE .COMPLEX Qty: 8.5 0RF Dose Instruction: inhale 1 to 2 puffs by mouth every 4 to 6 hours if needed for shortness of breath or wheezing Rx Instructions: inhale 1 to 2 puffs by mouth every 4 to 6 hours if needed for shortness of breath or wheezing clonazepam 0.5 mg tablet 0.25 mg PO DAILY Qty: 15 3RF sertraline 100 mg tablet See Rx Instructions .ROUTE .COMPLEX Qty: 90 0RF Dose Instruction: take 1 tablet by mouth once daily Rx Instructions: take 1 tablet by mouth once daily Referrals: Fred Lund MD [Primary Care Provider] -
[2022-07-01] MEDS: CYCLOBENZAPRINE 10 MG PREPACK 1 BOTTLE MISC (02:20)
[2022-07-01] MEDS: HYDROCODONE/ACET 5/325 PREPACK 1 BOTTLE MISC (02:20)
[2022-07-01] MEDS: LIDOCAINE PATCH 1 EACH ADH..PATCH TOP (02:21)
[2022-07-01] MEDS: predniSONE 20 MG TABLET 40 MG PO (02:21)
[2022-07-01] MEDS: KETOROLAC 30 MG/ML VIAL IM (02:21)
== END 2022-07-01 03:06 | disposition home or self-care (01) ==
PROVIDERS: Emergency Provider Emergency Medicine; PCP Family Medicine
DX: M62.838 Other muscle spasm (principal); M62.830 Muscle spasm of back; M54.16 Radiculopathy, lumbar region
CPT/HCPCS: 96372; 99283; J1885

== ENCOUNTER → 2022-07-09 08:43 | Outpatient (CLI) | payer MEDICARE, MEDICAID, SELFPAY ==
[2022-07-09 10:53] LABS: Alanine Aminotransferase 12 IU/L (<35); Albumin 4.1 g/dL (3.5-5.0); Alkaline Phosphatase 77 U/L (38-126); Aspartate Aminotransferase 18 IU/L (14-36); BUN Creatinine Ratio 23.1 (6-22); Bilirubin Total 0.3 mg/dL (0.2-1.3); Blood Urea Nitrogen 15 mg/dL (7-17); Calcium 9.5 mg/dL (8.4-10.2); Carbon Dioxide 30 mmol/L (22-32); Chloride 98 mmol/L (98-107); Estimated Glomerular Filt Rate > 60 mL/min (>60); Globulin 4.2 g/dL (1.7-4.1); Glucose 116 mg/dL (80-110); HEMOLYSIS < 15 (0-50); Potassium 4.6 mmol/L (3.4-5.1); Sodium 138 mmol/L (137-145); Total Protein 8.3 g/dL (6.3-8.2)
[2022-07-09 11:57] LABS: Hep C Virus Ab w/Reflex Quant REACTIVE s/c (NEGATIVE)
== END ==
PROVIDERS: PCP Family Medicine; Referring Provider Physician Assistant; Visit Provider Physician Assistant
DX: B18.2 Chronic viral hepatitis C (principal)
CPT/HCPCS: 36415; 80053; 86803

== ENCOUNTER → 2022-09-08 08:32 | Outpatient (CLI) | payer MEDICARE, MEDICAID, SELFPAY | PROVIDERS: PCP Family Medicine; Referring Provider Physician Assistant; Visit Provider Physician Assistant | DX: B18.2 Chronic viral hepatitis C (principal) | CPT/HCPCS: 36415 ==

== ENCOUNTER 2022-11-22 08:50 | Emergency (ER) | payer MEDICARE, MEDICAID, SELFPAY ==
[2022-11-22 08:59] VITALS: PULSE 92; RESP 18; O2SAT 95; BMI 17.2
[2022-11-22 09:13] VITALS: BP 163/85
--- NOTE | 2022-11-22 09:19 | ED.LOWEXIN ---
HPI - Extremity Injury (Lower) General Chief Complaint: Extremity Injury, Lower Stated Complaint: can't walk; lt leg hurts at the top Time Seen by Provider: 11/22/22 09:14 Source: patient Mode of arrival: Wheelchair Limitations: no limitations History of Present Illness HPI Narrative: Patient is a 72-year-old female who is here for evaluation of a upper left leg pain. States that she woke up this morning/was woken up this morning by pain in her left upper leg. She denies any specific injury. She went to bed last night without any symptoms. She has had ?sciatica? pain in the past but she thinks that was on the right side. She states that she can not walk because of the pain. Has discomfort with touching the front of her leg and also movement. Upon my evaluation she was sitting in slight hip flexion. She is no back pain. Has not tried anything for the symptoms prior to arrival. Related Data Home Medications Medication Instructions Recorded Confirmed ASPIRIN (Aspirin EC) 81 mg PO QDAY ##0 05/29/12 02/09/22 Previous Rx's Medication Instructions Recorded Syringe #2 ea 12/10/21 safety needles 25 gauge x 1 (BD #2 ea 12/10/21 SafetyGlide Needle) cyanocobalamin (vitamin B-12) 1,000 mcg IM QMONTH #1 mL 03/10/22 1,000 mcg/mL injection solution cyclobenzaprine 10 mg tablet 10 mg PO TID PRN muscle spasm #14 07/01/22 tabs gabapentin 300 mg capsule 300 mg PO BEDTIME #14 caps 07/01/22 hydrocodone 5 mg-acetaminophen 325 1 tab PO Q4-6H PRN pain #10 tabs 07/01/22 mg tablet ketorolac 10 mg tablet 10 mg PO Q6H PRN pain #14 tabs 07/01/22 methylprednisolone 4 mg tablets in See Rx Instructions PO .COMPLEX 07/01/22 a dose pack (Medrol (Karthik)) #21 ea clonazepam 0.5 mg tablet 0.25 mg PO DAILY #15 tabs 08/11/22 sertraline 100 mg tablet See Rx Instructions .Route 08/26/22 .COMPLEX #90 tabs albuterol sulfate 90 mcg/actuation See Rx Instructions .Route 08/31/22 aerosol inhaler .COMPLEX #8.5 grams lisinopril 20 mg tablet See Rx Instructions .Route 10/18/22 .COMPLEX #90 tabs cyclobenzaprine 10 mg tablet 10 mg PO TID PRN muscle spasm #14 11/22/22 tabs Allergies Allergy/AdvReac Type Severity Reaction Status Date / Time Iodinated Contrast Media Allergy Severe Facial/lip Verified 02/09/22 08:41 [IODINATED CONTRAST MEDIA - swelling IV DYE] Review of Systems Constitutional Constitutional: Reports system reviewed and no additional complaints, except as documented Gastrointestinal Gastrointestinal: Reports system reviewed and no additional complaints, except as documented Musculoskeletal Musculoskeletal: Reports system reviewed and no additional complaints, except as documented Integumentary/Breasts Skin/Breast: Reports system reviewed and no additional complaints, except as documented Neurologic Neurologic: Reports system reviewed and no additional complaints, except as documented Hematologic/Lymphatic On Anticoagulants: No Patient History Medical History Anxiety Asthma Chicken pox Chronic back pain Colon polyps (2011) Depression Endometriosis (1972) Homelessness Mumps Pyelonephritis Sciatica Shoulder pain Skin cancer (2011) Surgical History Anesthesia History of bladder suspension procedure S/P total abdominal hysterectomy and bilateral salpingo-oophorectomy Status post appendectomy Status post sclerotherapy of varicose veins Status post tonsillectomy and adenoidectomy Family History Brother Age: 74 Heart disease Asthma Father Heart disease Hypertension Diabetes mellitus Mother Age: 92 Heart disease Stroke Social History marital status: household members: friend(s) pets and animals: Yes education level: high school occupational status: employed seatbelt use: always water heater temp set < 120 deg: Yes working smoke detector in home: Yes fire extinguisher in home: No carbon monox detector in home: Yes firearms in home: No Smoking Status: Current every day smoker alcohol intake: current during the past year weight has: increased > 10 lbs well-balanced diet: about half the time daily servings fruits/ve-1 caffeine: Yes eating out: 1-3 times/week Smoking Status: Current every day smoker alcohol intake frequency: 0-2 drinks per day Substance Use Type: does not use Exam Initial Vital Signs Initial Vital Signs: Vital Signs Pulse Rate 92 H 11/22/22 08:59 Respiratory Rate 18 11/22/22 08:59 Pulse Oximetry 95 11/22/22 08:59 Oxygen Delivery Method Room Air 11/22/22 08:59 Const General: cooperative, comfortable and No ill appearing Back/Spine/Pelvis Thoracic/Lumbar Spine: No lumbar spinal tenderness Skin General: no rashes or lesions noted Neuro General: patient alert and moves all extremities Extrem Other: Patient has tenderness to palpation over both her medial quadriceps and anterior quadriceps proximally. There is an obvious muscle spasm in this area. She is no hamstring tenderness. Some mild tenderness over the lateral quadriceps. No back pain. Course Orders Ordered: ED Orders 11/22/22 10:17 XR hip w pel if done LT 2V Stat Discontinued Medications Hydrocodone Bitart/Acetaminophen (Hydrocodone/Acet 5/325 Tablet) 1 tab PO NOW ONE Stop: 11/22/22 09:15 Last Admin: 11/22/22 09:23 Dose: 1 tab Documented By: ERIKA Cyclobenzaprine HCl (Cyclobenzaprine 10 Mg Tablet) 10 mg PO NOW ONE Stop: 11/22/22 09:15 Last Admin: 11/22/22 09:23 Dose: 10 mg Documented By: ERIKA Hydromorphone HCl (Hydromorphone 1 Mg Inj) 0.5 mg IM NOW ONE Stop: 11/22/22 10:42 Last Admin: 11/22/22 11:03 Dose: 0.5 mg Documented By: ERIKA Vital Signs Vital signs: Vital Signs - 8 hr 11/22/22 08:59 11/22/22 09:13 11/22/22 10:34 Pulse Rate 92 H 84 Respiratory Rate 18 Blood Pressure 163/85 H 159/82 H Pulse Oximetry 95 Oxygen Delivery Method Room Air MDM - Extremity Injury (Lower) Imaging Data Extremity x-ray #1: Radiologist's Impression: PROCEDURE:? XR HIP W PEL IF DONE LT 2V ? INDICATIONS:? L hip pain ? TECHNIQUE:? AP pelvis with lateral view(s) of the left hip(s).? ? COMPARISON:? None. ? FINDINGS:? ? Bones:? Mild to moderate left hip degenerative change.? No fractures or dislocations.? Pelvic ring appears intact.? No suspicious bony lesions.? ? Soft tissues:? The visualized bowel gas pattern is normal.? No suspicious soft tissue calcifications.? ? ? IMPRESSION:? [id number] left hip degenerative change. No evidence acute bony abnormality of the pelvis and left hip. ? If clinical suspicion and/or symptoms persist, further assessment with repeat plain films, or advanced imaging (e.g., CT, MRI, or bone scan) may be helpful for further assessment. MDM Narrative Medical decision making narrative: X-ray shows no signs of acute fracture. The patient's symptoms do seem to be associated the proximal aspect of the medial and middle quadriceps tendon. Her exam is most consistent with a muscle spasm. No indication there is a fracture involvement. She does feel better after the above-stated treatments and was able to ambulate to the bathroom. Will send home with a prescription for a muscle relaxer. She was given return precautions. She expressed understanding and agreement. Discharge Plan Departure Patient Disposition: Home Clinical Impression: Muscle spasm Instructions: DI for Muscle Spasm Activity Restrictions/Additional Instructions: There were no fractures noted on the x-rays. I do recommend the use the muscle relaxers as needed. You can also do Tylenol or ibuprofen and also some light stretching. Contact your primary doctor for a follow-up especially if your symptoms are not improving. Prescriptions: New cyclobenzaprine 10 mg tablet 10 mg PO TID PRN (Reason: muscle spasm) Qty: 14 0RF No Action (DME) Syringe 3ml See Rx Instructions .Route .MEDSUPPLY Qty: 2 0RF Rx Instructions: As directed for B12 injection (DME) BD SafetyGlide Needle 25 gauge x 1 needle See Rx Instructions .Route Qty: 2 0RF Rx Instructions: As directed ASPIRIN (Aspirin EC) 81 mg PO QDAY Qty: 0 cyanocobalamin (vitamin B-12) 1,000 mcg/mL solution 1,000 mcg IM QMONTH Qty: 1 1RF Rx Instructions: Administer 1 ml once monthly for 2 months staring 01/08/22 clonazepam 0.5 mg tablet 0.25 mg PO DAILY Qty: 15 3RF sertraline 100 mg tablet See Rx Instructions .ROUTE .COMPLEX Qty: 90 0RF Dose Instruction: take 1 tablet by mouth once daily Rx Instructions: take 1 tablet by mouth once daily albuterol sulfate 90 mcg/actuation HFA aerosol inhaler See Rx Instructions .ROUTE .COMPLEX Qty: 8.5 2RF Dose Instruction: inhale 1 to 2 puffs by mouth every 4 to 6 hours if needed for shortness of breath or wheezing Rx Instructions: inhale 1 to 2 puffs by mouth every 4 to 6 hours if needed for shortness of breath or wheezing lisinopril 20 mg tablet See Rx Instructions .ROUTE .COMPLEX Qty: 90 0RF Dose Instruction: take 1 tablet by mouth once daily Rx Instructions: take 1 tablet by mouth once daily cyclobenzaprine 10 mg tablet 10 mg PO TID PRN (Reason: muscle spasm) Qty: 14 0RF hydrocodone-acetaminophen 5-325 mg tablet 1 tab PO Q4-6H PRN (Reason: pain) Qty: 10 0RF ketorolac 10 mg tablet 10 mg PO Q6H PRN (Reason: pain) Qty: 14 0RF gabapentin 300 mg capsule 300 mg PO BEDTIME Qty: 14 0RF methylprednisolone [Medrol (Karthik)] 4 mg tablets,dose pack See Rx Instructions .ROUTE .COMPLEX Qty: 21 0RF Rx Instructions: orally per package directions Referrals: Fred Lund MD [Primary Care Provider] - Stand Alone Forms: Patient Portal/API
[2022-11-22] MEDS: CYCLOBENZAPRINE 10 MG TABLET PO (09:23)
[2022-11-22] MEDS: HYDROCODONE/ACET 5/325 TABLET 1 TAB PO (09:23)
--- NOTE | 2022-11-22 10:17 | DI.RAD.S_ITS ---
PROCEDURE: XR HIP W PEL IF DONE LT 2V INDICATIONS: L hip pain TECHNIQUE: AP pelvis with lateral view(s) of the left hip(s). COMPARISON: None. FINDINGS: Bones: Mild to moderate left hip degenerative change. No fractures or dislocations. Pelvic ring appears intact. No suspicious bony lesions. Soft tissues: The visualized bowel gas pattern is normal. No suspicious soft tissue calcifications. IMPRESSION: [id number]-[id number] left hip degenerative change. No evidence acute bony abnormality of the pelvis and left hip. If clinical suspicion and/or symptoms persist, further assessment with repeat plain films, or advanced imaging (e.g., CT, MRI, or bone scan) may be helpful for further assessment. Dictated by: Nino Aiken M.D. on 11/22/2022 at 11:01 Approved by: Nino Aiken M.D. on 11/22/2022 at 11:02
[2022-11-22 10:34] VITALS: BP 159/82; PULSE 84
[2022-11-22] MEDS: HYDROMORPHONE 1 MG INJ 0.5 MG IM (11:03)
--- NOTE | 2022-11-22 11:31 | PC.NURSE ---
Pt ambulated to bathroom with stand by assist and ambulated back to room independently.
[2022-11-22 11:54] VITALS: BP 163/79
== END 2022-11-22 11:46 | disposition home or self-care (01) ==
PROVIDERS: Emergency Provider Emergency Medicine; PCP Family Medicine
DX: M62.838 Other muscle spasm (principal)
CPT/HCPCS: 73502; 96372; 99283; 99284; J1170

== ENCOUNTER → 2024-03-01 07:36 | Outpatient (CLI) | payer MEDICARE, MEDICAID, SELFPAY ==
[2024-03-01 08:47] LABS: Add Manual Diff / Slide Review NO; Basophils Absolute Auto 100 /uL (0-100); Basophils Percent Auto 0.8 % (0-2); Eosinophils Absolute Auto 100 /uL (0-450); Eosinophils Percent Auto 1.8 % (2-4); Hematocrit 43.4 % (36-46); Hemoglobin 14.7 g/dL (12.0-16.0); Lymphocytes Absolute Auto 2300 /uL (1100-4500); Mean Corpuscular HGB Conc 33.8 % (30-36); Mean Corpuscular Hemoglobin 30.6 PG (26-34); Mean Corpuscular Volume 90.5 fL (80-100); Monocytes Absolute Auto 500 /uL (0-900); Monocytes Percent Auto 7.4 % (3-14); Neutrophils Absolute Auto 4100 /uL (1500-7000); Platelet Count 290 X10^3/uL (150-400); Red Blood Cell Count 4.79 X10^6/uL (4.0-5.2); Red Cell Distribution Width 12.9 % (11.6-14.8); White Blood Cell Count 7.1 X10^3/uL (4.5-11.0)
[2024-03-01 09:14] LABS: HEMOLYSIS < 15 (0-50); Iron 128 ug/dL (37-170)
[2024-03-01 09:24] LABS: Alanine Aminotransferase 10 IU/L (<35); Albumin 4.3 g/dL (3.5-5.0); Albumin Globulin Ratio 1.4 (1.0-2.8); Alkaline Phosphatase 67 U/L (38-126); Aspartate Aminotransferase 20 IU/L (14-36); BUN Creatinine Ratio 25.3 (6-22); Bilirubin Total 0.5 mg/dL (0.2-1.3); Blood Urea Nitrogen 20 mg/dL (7-17); Calcium 9.2 mg/dL (8.4-10.2); Carbon Dioxide 28 mmol/L (22-32); Chloride 105 mmol/L (98-107); Cholesterol 233 mg/dL (140-199); Estimated Glomerular Filt Rate > 60 mL/min (>60); Globulin 3.1 g/dL (1.7-4.1); Glucose 130 mg/dL (80-110); HDL Cholesterol 72 mg/dL (40-60); HEMOLYSIS < 15 (0-50); LDL Cholesterol Calculated 146 mg/dL (<100); Potassium 4.9 mmol/L (3.4-5.1); Sodium 140 mmol/L (137-145); Total Protein 7.4 g/dL (6.3-8.2); Triglycerides 73 mg/dL (35-150)
[2024-03-01 09:28] LABS: Percent Iron Saturation 41 % (15-50); Total Iron Binding Capacity 313 ug/dL (265-497); Transferrin 259 mg/dL (206-381)
[2024-03-01 09:46] LABS: TSH w/ Reflex to FT4 1.51 uIU/mL (0.47-4.68)
[2024-03-01 12:26] LABS: Vitamin B12 279 pg/mL (239-931)
[2024-03-01 14:47] LABS: Hemoglobin A1C% w Est Avg Glu 6.1 % (4.0-6.0)
== END ==
PROVIDERS: PCP Family Medicine; Referring Provider Physician Assistant; Visit Provider Physician Assistant
DX: E53.8 Deficiency of other specified B group vitamins (principal); I10 Essential (primary) hypertension; E55.9 Vitamin D deficiency, unspecified; E78.5 Hyperlipidemia, unspecified; F17.200 Nicotine dependence, unspecified, uncomplicated; R73.01 Impaired fasting glucose
CPT/HCPCS: 36415; 80053; 80061; 82306; 82607; 83036; 83540; 83550; 84443; 85025

== ENCOUNTER → 2024-03-28 08:07 | Outpatient (CLI) | payer MEDICARE, MEDICAID, SELFPAY | PROVIDERS: PCP Family Medicine; Referring Provider Physician Assistant; Visit Provider Physician Assistant | DX: R06.09 Other forms of dyspnea (principal); Z87.891 Personal history of nicotine dependence; R94.2 Abnormal results of pulmonary function studies | CPT/HCPCS: 94060; 94726; 94729 ==

== ENCOUNTER → 2024-04-03 09:55 | Outpatient (CLI) | payer MEDICARE, MEDICAID, SELFPAY ==
--- NOTE | 2024-04-03 09:57 | DI.RAD.S_ITS ---
PROCEDURE: XR SACROILIAC JOINT MIN 3V INDICATIONS: Low back pain; sacral pain TECHNIQUE: 3 views of the sacroiliac joints were acquired. COMPARISON: None. FINDINGS: Bones: No bony erosions or ankylosis. No suspicious bony lesions. No acute fractures. Degenerative changes are seen in the lower lumbar spine. Soft tissues: Overlying bowel gas pattern is normal. No suspicious soft tissue densities. IMPRESSION: No radiographic evidence of sacroiliitis. No acute osseous abnormality. If symptoms persist or if there is continued clinical concern, cross-sectional imaging such as MRI or CT may be helpful for further evaluation. Approved by: Richard Tapia M.D. on 04/03/2024 at 11:49
--- NOTE | 2024-04-03 09:57 | DI.RAD.S_ITS ---
PROCEDURE: XR LUMBAR SPINE MIN 4V INDICATIONS: Low back pain; sacral pain TECHNIQUE: 5 views of the lumbar spine were acquired, including bilateral oblique views. COMPARISON: None. FINDINGS: Bones: 5 nonrib-bearing vertebrae are present. 4 mm grade 1 anterolisthesis at L3-4. No vertebral body compression fractures. No suspicious bony lesions. Generalized osteopenia. Multilevel disc space narrowing and degenerative endplate changes. Multilevel facet hypertrophy. Soft tissues: Overlying bowel gas pattern is normal. Aortic atherosclerotic calcifications. Suspected infrarenal abdominal aortic ectasia or aneurysm. Oblique images: No pars defects. IMPRESSION: Moderate multilevel spondylosis. Approved by: Richard Tapia M.D. on 04/03/2024 at 11:48
== END ==
PROVIDERS: PCP Family Medicine; Referring Provider Physician Assistant; Visit Provider Physician Assistant
DX: M47.816 Spondylosis without myelopathy or radiculopathy, lumbar region (principal); M54.50 Low back pain, unspecified; M53.3 Sacrococcygeal disorders, not elsewhere classified
CPT/HCPCS: 72110; 72202

== ENCOUNTER → 2024-04-06 13:24 | Outpatient (CLI) | payer MEDICARE, MEDICAID, SELFPAY ==
--- NOTE | 2024-04-06 13:26 | DI.US.S_ITS ---
PROCEDURE: US ABD AORTA ANEURYSM SCREEN INDICATIONS: suspected infrarenal AAA - seen on t-spine xrays TECHNIQUE: Real time scanning was performed of the aorta and iliac arteries, with image documentation. COMPARISON: [facility], , ABDOMEN COMPLETE, 08/10/2014, 20:52. [facility], , US ABDOMEN COMPLETE, 03/16/2022, 9:05. FINDINGS: Aorta: Proximal aortic diameter measures 2.3 cm. Mid-aorta measures 2.1 cm. Focal distal abdominal aortic ectasia is seen, measuring 2.7 cm AP. In 2021, this measured 2.1 cm AP. Iliac arteries: Right common iliac artery measures 0.7 cm. Left common iliac artery measures 1 cm. IMPRESSION: Focal distal abdominal aortic and change is seen, measuring 2.7 cm AP, previously measuring 2.1 cm. Dictated by: López Ivey M.D. on 04/06/2024 at 15:25 Approved by: López Ivey M.D. on 04/06/2024 at 15:27
== END ==
PROVIDERS: PCP Family Medicine; Referring Provider Physician Assistant; Visit Provider Physician Assistant
DX: I71.40 Abdominal aortic aneurysm, without rupture, unspecified (principal); Z87.891 Personal history of nicotine dependence
CPT/HCPCS: 76706

== ENCOUNTER → 2024-07-10 06:55 | Outpatient (CLI) | payer MEDICARE, MEDICAID, SELFPAY ==
[2024-07-10 08:22] LABS: Hemoglobin A1C% w Est Avg Glu 5.7 % (4.0-6.0)
[2024-07-10 08:25] LABS: Cholesterol 206 mg/dL (140-199); HDL Cholesterol 56 mg/dL (40-60); LDL Cholesterol Calculated 137 mg/dL (<100); Triglycerides 67 mg/dL (35-150)
[2024-07-10 09:08] LABS: Vitamin B12 279 pg/mL (239-931)
== END ==
PROVIDERS: PCP Family Medicine; Referring Provider Physician Assistant; Visit Provider Physician Assistant
DX: R73.03 Prediabetes (principal); E78.5 Hyperlipidemia, unspecified; E53.8 Deficiency of other specified B group vitamins
CPT/HCPCS: 36415; 80061; 82607; 83036

== ENCOUNTER → 2025-01-16 15:04 | Outpatient (CLI) | payer MEDICARE, MEDICAID, SELFPAY ==
--- NOTE | 2025-01-16 15:34 | DI.ECHO.S_ITS ---
[facility] : : [address] : : [place] : : [id number] : : Phone: [phone] Echocardiogram Report + + :Name: MARÍA ELENA LOCKHART Study Date: 01/16/2025 Height: 65 in : :[facility] ReadingLocation: Weight: 108 lb : : Gender: Female BSA: 1.5 m2 : :: 1950 Age: 74 yrs BP: 147/84 mmHg: :Reason For Study: CHEST PAIN : :Ordering Physician: CARLENE SILVA Performed By: Fred Wilson : :Referring: CARLENE SILVA : + + Interpretation Summary TDS PLAX/PSAX DUE TO SMALL BODY HABITUS, LUNG INTERFERENCE 1. The left ventricular contractility is mildly compromised. Estimate ejection fraction is approximately 40 to 45%. There is severe hypokinesis in the apical segment. No LVH. No diastolic dysfunction. 3. The right ventricular contractility is normal. 3. All cardiac chambers are of normal size. 4. Trace to mild mitral regurgitation. 5. Mild tricuspid regurgitation with estimated pulmonary systolic artery pressures of 34 mmHg. 6. No obvious intracardiac shunts. 7. No obvious intracardiac masses or thrombi. 8. Low right-sided filling pressures. 9. No hemodynamically significant pericardial effusion. Conclusion: Mildly compromised left ventricular systolic function with mild valvular regurgitations. Procedure: A two-dimensional transthoracic echocardiogram with color flow and Doppler was performed. The study quality was technically difficult. Most of the acoustic windows were suboptimal, but the best imaging was obtained from the apical window. There is no prior echocardiogram noted for this patient. The patient was in normal sinus rhythm during the exam. Left Ventricle: There is normal left ventricular wall thickness. The left ventricle is normal in size and wall thickness. There is no ventricular septal defect visualized. The ejection fraction is estimated to be 40-45%. There is apical hypokinesis. Right Ventricle: The right ventricle is normal in size and function. Atria: The left atrium is mildly dilated. Right atrial size is normal. There is no Doppler evidence for an interatrial shunt. Mitral Valve: The mitral valve leaflets appear mildly thickened, but open well. There is mild mitral regurgitation. Aortic Valve: The aortic valve is trileaflet. The aortic valve opens well. The aortic valve is mildly calcified. No aortic regurgitation is present. Tricuspid Valve: The tricuspid valve leaflets are thin and pliable. There is mild tricuspid regurgitation. The right ventricular systolic pressure is estimated to be at least 34 mmHg based on an estimated right atrial pressure of 3 mm Hg. Pulmonic Valve: The pulmonic valve is not well visualized. There is no pulmonic valvular regurgitation. Great Vessels: The aortic root is normal size. The ascending aorta could not be visualized. The pulmonary is not well visualized. The IVC is of normal diameter and collapses greater than 50% with a sniff. This suggests a low right atrial pressure of 3 mm Hg. Pericardium/ Pleura There is no pericardial effusion. There is no pleural effusion. MMode/2D Measurements & Calculations LVIDd: 4.4 cm LVOT diam: 1.8 cm LVIDs: 3.3 cm Ao root diam: 3.6 cm FS: 26.1 % EPSS: 0.98 cm IVSd: 0.97 cm LVPWd: 0.85 cm LV cruz. diameter/BSA (cm/m^2): 2.9 LV sys. diameter/BSA (cm/m^2): 2.1 LA A2 area: 18.6 cm2 RA long axis: 4.1 cm LA A4 area: 12.9 cm2 RA area: 10.9 cm2 LA length (vol): 4.2 cm RA vol: 24.4 ml LA vol: 48.0 ml RA : 16.0 ml/m2 LA vol index: 31.5 ml/m2 IVC diam: 1.6 cm RVD1 (basal): 3.0 cm RVD2 (mid): 2.3 cm TAPSE: 2.4 cm Doppler Measurements & Calculations Ao V2 max: 129.1 cm/sec LVOT Max Neo: 88.3 cm/sec Ao V2 mean: 94.4 cm/sec LV V1 max P.1 mmHg Ao max P.7 mmHg LV V1 VTI: 17.8 cm Ao mean P.9 mmHg SHEMAR(I,D): 1.6 cm2 Ao V2 VTI: 29.5 cm SHEMAR(V,D): 1.8 cm2 sev ratio: 0.60 SHEMAR indexed to BSA (cm^2/m^2): 1.0 MV E max neo: 50.3 cm/sec TR max neo: 277.0 cm/sec MV A max neo: 92.7 cm/sec TR max P.7 mmHg MV E/A: 0.54 PA V2 max: 77.4 cm/sec Med Peak E' Neo: 4.0 cm/sec PA V2 mean: 48.4 cm/sec E/E' med: 12.6 PA mean P.1 mmHg Lat Peak E' Noe: 3.8 cm/sec PA pr(Accel): 46.5 mmHg E/E' lat: 13.1 E/e' average: 12.8 MV dec time: 0.23 sec SV(MIGNON): 47.0 ml Reading Physician:MISAEL
== END ==
PROVIDERS: PCP Family Medicine; Referring Provider Internal Medicine; Visit Provider Internal Medicine
DX: I08.1 Rheumatic disorders of both mitral and tricuspid valves (principal); R07.9 Chest pain, unspecified; R94.31 Abnormal electrocardiogram [ECG] [EKG]
CPT/HCPCS: 93306

== ENCOUNTER → 2025-03-02 09:38 | Outpatient (CLI) | payer MEDICARE, MEDICAID, SELFPAY ==
--- NOTE | 2025-03-02 09:40 | DI.CT.S_ITS ---
PROCEDURE: CT LUNG LOW DOSE SCREENING INDICATIONS: Hx of tobacco use > 30 pack years, active TECHNIQUE: Noncontrast 2.0-2.5 mm thick sections acquired from the pulmonary apices to the posterior costophrenic angles. 7 mm thick axial MIP, and 5 mm coronal and sagittal reformats were then acquired. For radiation dose reduction, the following was used: automated exposure control, adjustment of mA and/or kV according to patient size. COMPARISON: None. FINDINGS: Image quality: Diagnostic. Lower Neck: No enlarged lymph nodes. Thyroid: No thyroid nodules which require sonographic follow up, per consensus guidelines. Axillae: No enlarged lymph nodes. Chest Wall: Unremarkable. Bones: Unremarkable. Lungs and Pleura: No pneumothorax or pleural effusions. Peripheral reticular opacities. Minimal emphysematous change. Right juxta fissural nodule is present measuring 4 mm series 3, image 187. No consolidation or suspicious nodules. Heart: Heart size is normal. No pericardial effusion. Thoracic Vessels: The aorta and pulmonary arteries demonstrate normal size. Mediastinum and Kathie: No enlarged lymph nodes. Esophagus: No wall thickening. No hiatal hernia. Upper Abdomen: Visualized upper abdomen solid organs and bowel loops appear normal. IMPRESSION: Juxta fissural right nodule measuring 4 mm. No priors. LUNG-RADS 2; continued annual screening, if eligible. Clinically Significant Non-pulmonary Findings: None. Dictated by: Chana Leggett M.D. on 03/02/2025 at 10:23 Approved by: Chana Leggett M.D. on 03/02/2025 at 10:24
== END ==
PROVIDERS: PCP Family Medicine; Referring Provider Student in an Organized Health Care Education/Training Program; Visit Provider Student in an Organized Health Care Education/Training Program
DX: Z12.2 Encounter for screening for malignant neoplasm of respiratory organs (principal); F17.210 Nicotine dependence, cigarettes, uncomplicated; R91.1 Solitary pulmonary nodule
CPT/HCPCS: 71271

== ENCOUNTER 2025-06-17 19:39 | Emergency (ER) | payer MEDICARE, MEDICAID, SELFPAY ==
[2025-06-17] VITALS (7 sets, daily range): BP systolic 131–152; BP diastolic 61–72; PULSE 69–80; RESP 16–28; TEMP 36.6; O2SAT 85–94; BMI 22.1
--- NOTE | 2025-06-17 19:45 | DI.RAD.S_ITS ---
PROCEDURE: XR HIP W PEL IF DONE RT 2V INDICATIONS: fall. pain TECHNIQUE: AP pelvis with lateral view(s) of the left hip(s). COMPARISON: [facility], CR, XR HIP W PEL IF DONE LT 2V, 11/22/2022, 10:22. FINDINGS: Bones: Diffuse osteopenia. Visualized pelvic ring appears intact. Lower lumbar spondylosis. There is a transverse subcapital right femoral neck fracture with mild impaction. Other osseous structures appear intact. Degenerative changes of the bilateral hip. Soft tissues: The visualized bowel gas pattern is normal. No suspicious soft tissue calcifications. IMPRESSION: Displaced, mildly impacted subcapital right femoral neck fracture. Dictated by: Narayan Hoyos M.D. on 06/17/2025 at 20:57 Approved by: Narayan Hoyos M.D. on 06/17/2025 at 20:59
--- NOTE | 2025-06-17 20:08 | DI.RAD.S_ITS ---
PROCEDURE: XR CHEST 1V INDICATIONS: Chest Pain TECHNIQUE: One view of the chest was acquired. COMPARISON: [facility], CR, XR CHEST 2V, 12/02/2021, 10:09. FINDINGS: Surgical changes and devices: None. Lungs and pleura: Diffuse interstitial prominence. Mild vascular congestion. Mild perihilar airway thickening. Streaky bibasilar opacities. No substantial pleural effusion. No pneumothorax. No dense consolidation. Mediastinum: Mediastinal contours appear normal. Heart size is normal. Bones and chest wall: No suspicious bony lesions. Overlying soft tissues appear unremarkable. IMPRESSION: Diffuse interstitial prominence with suggestion of mild vascular congestion and perihilar airway thickening. There also mild streaky bibasilar opacities. Findings may represent early pulmonary edema/CHF. However, an infectious or inflammatory process not excluded if clinically appropriate. No dense consolidation seen. Dictated by: Narayan Hoyos M.D. on 06/17/2025 at 20:55 Approved by: Narayan Hoyos M.D. on 06/17/2025 at 20:57
--- NOTE | 2025-06-17 20:08 | EKG_ITS ---
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
[2025-06-17 20:16] LABS: Add Manual Diff / Slide Review NO; Hematocrit 38.6 % (36-46); Hemoglobin 13.0 g/dL (12.0-16.0); Lymphocytes Absolute Auto 2200 /uL (1100-4500); Mean Corpuscular HGB Conc 33.6 % (30-36); Mean Corpuscular Hemoglobin 30.0 PG (26-34); Mean Corpuscular Volume 89.2 fL (80-100); Platelet Count 282 X10^3/uL (150-400)
[2025-06-17 20:19] LABS: Alanine Aminotransferase 17 IU/L (<35); Albumin 4.8 g/dL (3.5-5.0); Albumin Globulin Ratio 1.4 (1.0-2.8); Alkaline Phosphatase 55 U/L (38-126); Blood Urea Nitrogen 31 mg/dL (7-17); Calcium 9.6 mg/dL (8.4-10.2); Carbon Dioxide 31 mmol/L (22-32); Chloride 94 mmol/L (98-107); Estimated Glomerular Filt Rate > 60 mL/min (>60); Globulin 3.5 g/dL (1.7-4.1); Glucose 103 mg/dL (70-99); HEMOLYSIS 16 (0-50); Potassium 4.6 mmol/L (3.4-5.1); Sodium 135 mmol/L (137-145); Total Protein 8.3 g/dL (6.3-8.2)
[2025-06-17 20:31] LABS: NT-proBNP (BNP-Adult 18+) 237 pg/mL (<450); Troponin I < 0.012 ng/mL (0.01-0.034)
--- NOTE | 2025-06-17 20:51 | ED.FALL ---
HPI - Fall General Chief Complaint: Fall Stated Complaint: fall Time Seen by Provider: 06/17/25 20:03 Source: patient and EMS Mode of arrival: EMS History of Present Illness HPI Narrative: 75-year-old woman with a history of coronary artery disease, hypertension, hyperlipidemia, COPD comes in by medics after mechanical fall, was walking over to visit a neighbor tripped on tree root landing on her right hip. Foreshortened and internally rotated with significant right hip pain. She did not hit her head she has no other specific complaints. Related Data Home Medications ?Medication ?Instructions ?Recorded ?Confirmed ASPIRIN (Aspirin EC) 81 mg PO QDAY ##0 05/29/12 05/09/25 cholecalciferol (vitamin D3) 25 50 mcg PO DAILY 03/20/24 05/09/25 mcg (1,000 unit) capsule vitamin B complex 1 tab PO DAILY 03/20/24 05/09/25 Previous Rx's ?Medication ?Instructions ?Recorded inhalational spacing device #1 ea 03/20/24 (BreatheRite MDI Spacer) cyanocobalamin (vitamin B-12) 1,000 mcg IM QMONTH #1 mL 07/19/24 1,000 mcg/mL injection solution amlodipine 5 mg tablet 5 mg PO DAILY #90 tabs 01/07/25 tiotropium 2.5 mcg-olodaterol 2.5 2 puff inhalation DAILY #4 grams 02/07/25 mcg/actuation mist for inhalation (Stiolto Respimat) albuterol sulfate 90 mcg/actuation 2 puff inhalation Q4-6H PRN 03/26/25 aerosol inhaler shortness of breath or wheezing #8.5 grams lisinopril 20 mg tablet 20 mg PO DAILY for blood pressure 04/30/25 #90 tabs rosuvastatin 5 mg tablet 5 mg PO DAILY #90 tabs 05/06/25 escitalopram oxalate 20 mg tablet 20 mg PO DAILY #90 tabs 05/09/25 Allergies Allergy/AdvReac Type Severity Reaction Status Date / Time Iodinated Contrast Media Allergy Severe Facial/lip Verified 06/17/25 19:45 (IODINATED CONTRAST MEDIA - swelling IV DYE) Review of Systems Review of Systems Narrative: Pertinent positive and negative findings as per HPI Patient History Medical History Cigarette nicotine dependence COPD (chronic obstructive pulmonary disease) Hepatitis C Pyelonephritis Sciatica Homelessness Anxiety Asthma Chronic back pain Chicken pox Colon polyps (2011) Mumps Depression Shoulder pain Endometriosis (1972) Skin cancer (2011) Surgical History Anesthesia Status post tonsillectomy and adenoidectomy Status post appendectomy History of bladder suspension procedure Status post sclerotherapy of varicose veins S/P total abdominal hysterectomy and bilateral salpingo-oophorectomy Family History Brother Age: 77 Heart disease Asthma Father Heart disease Hypertension Diabetes mellitus Mother Age: 95 Heart disease Stroke Social History marital status: household members: friend(s) pets and animals: Yes education level: high school occupational status: employed seatbelt use: always water heater temp set < 120 deg: Yes working smoke detector in home: Yes fire extinguisher in home: No carbon monox detector in home: Yes firearms in home: No Smoking Status: Former smoker alcohol intake: current during the past year weight has: increased > 10 lbs well-balanced diet: about half the time daily servings fruits/ve-1 caffeine: Yes eating out: 1-3 times/week Smoking Status: Former smoker alcohol intake frequency: 0-2 drinks per day Exam Initial Vital Signs Initial Vital Signs: Vital Signs Temperature 97.9 F 06/17/25 19:45 Pulse Rate 80 06/17/25 19:45 Respiratory Rate 18 06/17/25 19:45 Blood Pressure 152/72 H 06/17/25 19:45 Pulse Oximetry 85 L 06/17/25 19:45 Oxygen Delivery Method Room Air 06/17/25 19:45 General: Frail, complaining of right hip pain, able to cooperate fully with the exam HEENT: Moist mucous membranes, normal sclera with reactive pupils, Respiratory: Lungs with scattered wheeze in all lung bautista, full and symmetrical movement. Cardiac: Regular rate and rhythm no murmurs no bruits Abdomen: Soft, nontender, no rebound or guarding, no flank pain Skin: Thin, scattered bruises in various stages of healing Neurologic: Grossly neurologically intact with no obvious asymmetries or abnormalities Extremities: Significant right hip pain with leg internally rotated and foreshortened Psych: Cooperative, appropriate insight and affect Course Orders Ordered: ED Orders 06/17/25 19:40 Complete Blood Count AUTO DIFF Stat Comprehensive Metabolic Panel Stat D Dimer Stat NT-proBNP (BNP-Adult 18+) Stat Troponin I Stat 06/17/25 19:45 XR hip w pel RT 2V Stat 06/17/25 20:08 XR chest 1V Stat EKG-12 Lead Stat Hydromorphone HCl (Hydromorphone Hcl 0.5 Mg/0.5 Ml Syringe) 0.5 mg IV Q15MIN PRN PRN Reason: Pain, Last Admin: 06/17/25 22:30 Dose: 0.5 mg Documented By: Admin: 06/17/25 21:53 Dose: 0.5 mg Documented By: Admin: 06/17/25 21:04 Dose: 0.5 mg Documented By: MICKI Vital Signs Vital signs: Vital Signs - 8 hr 06/17/25 19:45 06/17/25 19:47 06/17/25 20:00 Temperature 97.9 F Pulse Rate 80 71 Respiratory Rate 18 17 Blood Pressure 152/72 H 131/61 Pulse Oximetry 85 L 93 Oxygen Delivery Method Room Air Oxygen Flow Rate 06/17/25 20:00 06/17/25 20:30 06/17/25 21:00 Temperature Pulse Rate 69 74 74 Respiratory Rate 20 20 20 Blood Pressure Pulse Oximetry 94 92 92 Oxygen Delivery Method Nasal Cannula Nasal Cannula Nasal Cannula Oxygen Flow Rate 2 2 2 06/17/25 21:30 06/17/25 22:00 Temperature Pulse Rate 77 76 Respiratory Rate 16 28 H Blood Pressure Pulse Oximetry 92 90 L Oxygen Delivery Method Nasal Cannula Oxygen Flow Rate 2 MDM - Fall Lab Data 06/17/25 19:40 06/17/25 19:40 Labs: Lab Results 06/17/25 Range/Units 19:40 WBC 10.6 (4.5-11.0) X10^3/uL RBC 4.33 (4.0-5.2) X10^6/uL Hgb 13.0 (12.0-16.0) g/dL Hct 38.6 (36-46) % MCV 89.2 (80-100) fL MCH 30.0 (26-34) PG MCHC 33.6 (30-36) % RDW 13.2 (11.6-14.8) % Plt Count 282 (150-400) X10^3/uL Neut % (Auto) 65.1 (50-75) % Lymph % (Auto) 20.8 L (25-40) % [place] % (Auto) 8.2 (3-14) % Eos % (Auto) 5.1 H (2-4) % Baso % (Auto) 0.8 (0-2) % Neut # (Auto) 6900 (1417-3775) /uL Lymph # (Auto) 2200 (6382-7884) /uL [place] # (Auto) 900 (0-900) /uL Eos # (Auto) 500 H (0-450) /uL Baso # (Auto) 100 (0-100) /uL D-Dimer 76219 H (<500) ng/ml Sodium 135 L (137-145) mmol/L Potassium 4.6 (3.4-5.1) mmol/L Chloride 94 L (98-107) mmol/L Carbon Dioxide 31 (22-32) mmol/L BUN 31 H (7-17) mg/dL Creatinine 0.69 (0.52-1.04) mg/dL Estimated GFR > 60 (>60) mL/min BUN/Creatinine Ratio 44.9 H (6-22) Glucose 103 H (70-99) mg/dL Calcium 9.6 (8.4-10.2) mg/dL Total Bilirubin 0.2 (0.2-1.3) mg/dL AST 29 (14-36) IU/L ALT 17 (<35) IU/L Alkaline Phosphatase 55 (38-126) U/L Troponin I < 0.012 (0.01-0.034) ng/mL NT-Pro-B Natriuret Pep 237 (<450) pg/mL Total Protein 8.3 H (6.3-8.2) g/dL Albumin 4.8 (3.5-5.0) g/dL Globulin 3.5 (1.7-4.1) g/dL Albumin/Globulin Ratio 1.4 (1.0-2.8) MDM Narrative Medical decision making narrative: CC: Mechanical fall landing on her right hip Complicating co-morbidities: Hypertension, coronary artery disease, heart failure with mildly reduced ejection fraction Heart catheterization May 02, 2025 shows severe multivessel coronary disease, normal right and left-sided filling pressures Data collected from: patient Social determinants of health that may influence the patients condition: Heart catheterization in April of this year with significant multivessel disease. Recently discontinued tobacco abuse, currently has a nicotine patch in place Medical records reviewed: Cardiology note from May 17 reviewed. Patient was referred to Surgical team at [facility], Dr Van Kerr, for further evaluation of her multivessel coronary artery disease. Differential considered: Hip fracture, pelvic fracture, long bone fracture, patient is very clear that this was a mechanical fall but possibility of syncope secondary to cardiac etiology is entertained Exam documented above, pertinent findings include: Frail, wheezing, right hip pain with concern for fracture Lab Test results independently reviewed as above. Pertinent findings: CBC is unremarkable Chemistries are actually fairly reassuring. Normal creatinine. Liver enzymes are unremarkable Troponin is undetected ProBNP is not elevated D-dimer was done as significantly elevated, she is not having signs or symptoms of pulmonary embolism and she does have fracture that certainly could cause bleeding. Independently reviewed EKG: Sinus rhythm at a rate of 75 without ischemic changes Imaging studies independently reviewed: Right comminuted impacted femoral neck fracture X-ray shows diffuse interstitial prominence with streaky bibasilar opacities, pulmonary edema, infection and inflammatory processes are all considered Consultations: Discussion with [facility]. Given her high cardiovascular risk she will not be anesthesia candidate and thus will need transfer for her presumed hip surgery Treatments: IV Dilaudid for pain control Discussion: 75-year-old woman with mechanical fall and subsequent displaced impacted right femoral neck fracture. She has significant coronary artery disease underwent heart catheterization in April of this year and month ago a referral to [facility] for consideration of coronary bypass surgery was initiated. She has not yet had that consultation. She is not currently having any chest pain or exertional dyspnea. Unfortunately, that is a significant enough risk factor for anesthesia that she is not going to be able to have her hip surgery at our hospital. Have contacted [facility] and after discussion with their orthopedist the recommendation was an ED to ED transfer. Lab workup is reassuring. Her D-dimer was dramatically elevated however she is not tachypneic, tachycardic nor hypotensive. She is slightly hypoxic but does have significant wheeze. She is also allergic to IV contrast. PE study was not ordered, abnormal lab was highlighted for receiving physician to consider. Patient is stable at time of transfer to [facility]. Discharge Plan Departure Patient Disposition: [facility] Clinical Impression: Closed hip fracture Qualifiers: Encounter type: initial encounter Laterality: right Qualified Code(s): S72.001A - Fracture of unspecified part of neck of right femur, initial encounter for closed fracture Coronary artery disease Qualifiers: Coronary Disease-Associated Artery/Lesion type: [place] artery [place] vs. transplanted heart: [place] heart Associated angina: without angina Qualified Code(s): I25.10 - Atherosclerotic heart disease of [place] coronary artery without angina pectoris Prescriptions: No Action ASPIRIN (Aspirin EC) 81 mg PO QDAY Qty: 0 amlodipine 5 mg tablet 5 mg PO DAILY Qty: 90 3RF Rx Instructions: Take once daily with Lisinopril for blood pressure albuterol sulfate 90 mcg/actuation HFA aerosol inhaler 2 puff inhalation Q4-6H PRN (Reason: shortness of breath or wheezing) Qty: 8.5 6RF Rx Instructions: Inhale 2 puffs with spacer every 4-6 hours as needed for shortness of breath lisinopril 20 mg tablet 20 mg PO DAILY Qty: 90 3RF rosuvastatin 5 mg tablet 5 mg PO DAILY Qty: 90 2RF (DME) BreatheRite MDI Spacer Spacer See Rx Instructions .Route Qty: 1 0RF Rx Instructions: As directed cholecalciferol (vitamin D3) 25 mcg (1,000 unit) capsule 50 mcg PO DAILY vitamin B complex Tablet 1 tab PO DAILY cyanocobalamin (vitamin B-12) 1,000 mcg/mL solution 1,000 mcg IM QMONTH Qty: 1 12RF escitalopram oxalate 20 mg tablet 20 mg PO DAILY Qty: 90 3RF Rx Instructions: Take one tablet once daily for anxiety and depression Stiolto Respimat 2.5-2.5 mcg/actuation mist 2 puff inhalation DAILY Qty: 4 12RF Rx Instructions: 2 puffs once daily for COPD Referrals: Fred Lund MD [Primary Care Provider, Family Practice]
== END 2025-06-17 22:53 | disposition short-term general hospital (02) ==
PROVIDERS: Emergency Provider Emergency Medicine; PCP Family Medicine
DX: S72.001A Fracture of unspecified part of neck of right femur, initial encounter for closed fracture (principal); I25.10 Atherosclerotic heart disease of native coronary artery without angina pectoris; W01.0XXA Fall on same level from slipping, tripping and stumbling without subsequent striking against object, initial encounter; R09.02 Hypoxemia
CPT/HCPCS: 71045; 73502; 80053; 83880; 84484; 85025; 85379; 93005; 96374; 96376; 99284; J1171